=== PATIENT | female | born 1950 | race African-American/Black ===

== ENCOUNTER 2018-04-23 08:47 | Inpatient (IN) ==
[2018-04-23] MEDS ORDERED: SODIUM CHLORIDE 0.9% 1,000 ML IV STA ×2 (09:11→10:57)
[2018-04-23 10:17] LABS: Barbiturates Screen,Urine Negative (Negative); Benzodiazepines Screen,Urine Negative (Negative); Cannabinoid Screen,Urine Negative (Negative); Opiate Screen,Urine Positive (Negative); Phencyclidine Screen,Urine Negative (Negative)
[2018-04-23 10:21] LABS: Albumin 2.4 G/DL (3.4-5.0); Apearance,Urine Slightly Hazy (Clear); Bilirubin,Total 0.4 MG/DL (0.2-1.0); Bilirubin,Urine Negative (Negative); Blood, Urine Moderate mg/dL (Negative); Calcium 8.2 MG/DL (8.5-10.1); Glucose,Urine (UA) Negative (Negative); Ketones,Urine Negative (Negative); Mucus,Urine Few /LPF (Occasional); Nitrite,Urine Negative (Negative); Osmolality,Calculated 286.7 MOS/KG (273-304); Potassium 3.9 MMOL/L (3.5-5.1); Protein,Urine 30 MG/DL; RBC,Urine 22 /HPF (0-4); Squamous Epithelial Cell,Urine Occasional /HPF (0-10); Total Protein 6.6 G/DL (6.4-8.3); Urine Color Yellow (Yellow); Urine Urobilinogen < 2.0 EU/DL (0.2-1.0); WBC,Urine 252 /HPF (0-6)
[2018-04-23 10:43] LABS: Basophils % 0.2 % (0.0-0.8); Eosinophils % 0.1 % (0.00-10.9); Hematocrit 37.9 VOL% (35.7-47.0); Immature Granulocytes % 0.7 %; Immature Granulocytes Absolute 0.08 #; Lymphocytes # 1.3 10*3/uL (1.4-4.0); Lymphocytes % 10.7 % (21.3-54.2); Mean Corpuscular HGB Conc 29.3 GM/DL (32-36); Mean Corpuscular Hemoglobin 26 PG (27-34); Mean Corpuscular Volume 90.2 FL (87-102); Mean Platelet Volume 12.4 FL (9.6-12.0); Monocytes # 1.6 10*3/uL (0.11-0.8); Neutrophils # 9.2 10*3/uL (1.4-7.4); Neutrophils % 75.3 % (38.7-73.9); Platelet Count 258 T/CUMM (130-400); Red Cell Distribution Width 13.6 % (9.3-17.3); White Blood Count 12.3 T/CUMM (4-12)
[2018-04-23 10:46] LABS: Hemoglobin 11.1 GM/DL (12.0-16.0)
[2018-04-23] MEDS ORDERED: cefTRIAXone 2,000 MG in SODIUM CHLORIDE 0.9% 100 ML IV ONE (10:54)
[2018-04-23] MEDS ORDERED: cefTRIAXone 1,000 MG VIAL ONE (11:38)
[2018-04-23] MEDS ORDERED: HYDROmorphone 2 MG/1 ML VIAL IV STA (12:05)
[2018-04-23] MEDS ORDERED: ACETAMINOPHEN 325 MG TABLET PO PRN (12:39)
[2018-04-23] MEDS ORDERED: ONDANSETRON 4 MG/2 ML VIAL IV PRN (12:39)
[2018-04-23] MEDS ORDERED: DOCUSATE SODIUM 100 MG CAPSULE PO PRN (12:39)
[2018-04-23 13:19] LABS: Thyroid Stimulating Hormone 1.23 uIU/ml (0.358-3.74)
[2018-04-23] MEDS ORDERED: HYDROmorphone 2 MG TABLET PO PRN (13:34)
[2018-04-23] MEDS ORDERED: ALBUTEROL/IPRATROPIUM 3 ML NEB RESP TX PRN (13:34)
[2018-04-23] MEDS ORDERED: HydrOXYzine PAMOATE 25 MG CAPSULE PO PRN (13:34)
[2018-04-23] MEDS ORDERED: NITROGLYCERIN SL 0.4 MG TABLET SL PRN (13:34)
[2018-04-23] MEDS: SODIUM CHLORIDE 0.9% 1,000 ML IV SCH (13:51)
[2018-04-23] MEDS ORDERED: HYDROmorphone 2 MG/1 ML VIAL IV PRN (14:06)
[2018-04-23] MEDS: ALBUTEROL/IPRATROPIUM 3 ML NEB RESP TX SCH ×2 (14:30→19:25)
[2018-04-23] MEDS: TOPIRAMATE 25 MG TABLET PO SCH (20:34)
[2018-04-23] MEDS: TAMSULOSIN 0.4 MG CAPSULE PO SCH (20:34)
[2018-04-23] MEDS: oxyCODONE IR 5 MG TABLET PO PRN (20:34)
[2018-04-23] MEDS: ENOXAPARIN 40 MG/0.4 ML SYRINGE SUBCUT SCH (20:37)
[2018-04-24] MEDS: SODIUM CHLORIDE 0.9% 1,000 ML IV SCH ×2 (01:30→15:20)
[2018-04-24 04:43] LABS: Basophils % 0.5 % (0.0-0.8); Eosinophils # 0.2 10*3/uL (0.0-0.87); Eosinophils % 2.3 % (0.00-10.9); Hematocrit 31.6 VOL% (35.7-47.0); Hemoglobin 9.3 GM/DL (12.0-16.0); Immature Granulocytes % 0.5 %; Immature Granulocytes Absolute 0.04 #; Lymphocytes # 2.5 10*3/uL (1.4-4.0); Lymphocytes % 27.7 % (21.3-54.2); Mean Corpuscular HGB Conc 29.4 GM/DL (32-36); Mean Corpuscular Hemoglobin 26 PG (27-34); Mean Corpuscular Volume 89.5 FL (87-102); Mean Platelet Volume 11.7 FL (9.6-12.0); Monocytes % 11.6 % (1.7-12.7); Neutrophils # 5.1 10*3/uL (1.4-7.4); Neutrophils % 57.4 % (38.7-73.9); Platelet Count 239 T/CUMM (130-400); Red Blood Count 3.53 MC/CUMM (3.8-5.5); Red Cell Distribution Width 13.6 % (9.3-17.3); White Blood Count 8.9 T/CUMM (4-12)
[2018-04-24 05:12] LABS: Calcium 7.6 MG/DL (8.5-10.1); Osmolality,Calculated 288.4 MOS/KG (273-304); Potassium 3.4 MMOL/L (3.5-5.1); Risk Ratio 2.76; VLDL CHOLESTEROL 14.6 MG/DL
[2018-04-24 05:16] LABS: Eosinophils 3 % (0-10); Lymphocytes 28 % (20-55); Platelet Estimate Normal; Polychromasia Few; Segmented Neutrophils 64 % (50-85); Total Cells Counted 100
[2018-04-24] MEDS: LEVOTHYROXINE 100 MCG TABLET PO SCH (06:15)
[2018-04-24] MEDS: oxyCODONE IR 5 MG TABLET PO PRN ×2 (06:22→13:59)
[2018-04-24] MEDS: ALBUTEROL/IPRATROPIUM 3 ML NEB RESP TX SCH ×4 (06:47→19:08)
[2018-04-24] MEDS: cefTRIAXone 1,000 MG in SYRINGE 1 EACH IV SCH (09:08)
[2018-04-24] MEDS: ESCITALOPRAM 10 MG TABLET PO SCH (09:11)
[2018-04-24] MEDS: ISOSORBIDE MONONITRATE 30 MG TABLET PO SCH (09:11)
[2018-04-24] MEDS: ASPIRIN EC 81 MG TABLET PO SCH (09:11)
[2018-04-24] MEDS: PANTOPRAZOLE 40 MG TABLET PO SCH (09:11)
[2018-04-24] MEDS: predniSONE 5 MG TABLET PO SCH (09:11)
[2018-04-24] MEDS: TOPIRAMATE 25 MG TABLET PO SCH ×2 (09:11→21:44)
[2018-04-24] MEDS: OLOPATADINE 0.1% OPH SOLN 5 ML BOTTLE BOTH EYES SCH (09:12)
[2018-04-24] MEDS: amLODIPine 5 MG TABLET PO SCH (09:15)
[2018-04-24] MEDS: FLUCONAZOLE INJ 100 MG in IV BAG 1 EACH IV SCH (10:51)
[2018-04-24] MEDS: TAMSULOSIN 0.4 MG CAPSULE PO SCH (21:43)
[2018-04-24] MEDS: ENOXAPARIN 40 MG/0.4 ML SYRINGE SUBCUT SCH (21:44)
[2018-04-25] MEDS: oxyCODONE IR 5 MG TABLET PO PRN (02:21)
[2018-04-25] MEDS: SODIUM CHLORIDE 0.9% 1,000 ML IV SCH (03:15)
[2018-04-25 05:15] LABS: Calcium 8.1 MG/DL (8.5-10.1); Osmolality,Calculated 286.6 MOS/KG (273-304); Potassium 3.5 MMOL/L (3.5-5.1)
[2018-04-25 05:29] LABS: Basophils % 0.4 % (0.0-0.8); Eosinophils # 0.2 10*3/uL (0.0-0.87); Eosinophils % 2.1 % (0.00-10.9); Hematocrit 32.5 VOL% (35.7-47.0); Hemoglobin 9.7 GM/DL (12.0-16.0); Immature Granulocytes % 0.4 %; Immature Granulocytes Absolute 0.04 #; Lymphocytes # 2.1 10*3/uL (1.4-4.0); Lymphocytes % 20.1 % (21.3-54.2); Mean Corpuscular HGB Conc 29.8 GM/DL (32-36); Mean Corpuscular Hemoglobin 27 PG (27-34); Mean Corpuscular Volume 89.5 FL (87-102); Monocytes # 1.2 10*3/uL (0.11-0.8); Monocytes % 11.8 % (1.7-12.7); Neutrophils # 6.7 10*3/uL (1.4-7.4); Neutrophils % 65.2 % (38.7-73.9); Platelet Count 252 T/CUMM (130-400); Red Blood Count 3.63 MC/CUMM (3.8-5.5); Red Cell Distribution Width 13.6 % (9.3-17.3); White Blood Count 10.2 T/CUMM (4-12)
[2018-04-25 05:53] LABS: Hypochromasia 1+
[2018-04-25 05:54] LABS: Microcytosis 1+; Ovalocytes Slight; Platelet Estimate Normal
[2018-04-25] MEDS: LEVOTHYROXINE 100 MCG TABLET PO SCH (06:12)
[2018-04-25] MEDS: ALBUTEROL/IPRATROPIUM 3 ML NEB RESP TX SCH ×4 (06:50→18:52)
[2018-04-25] MEDS ORDERED: DIAZEPAM 5 MG TABLET PO ONE (07:52)
[2018-04-25] MEDS ORDERED: ALBUTEROL 2.5 MG/3 ML NEB RESP TX ONE (07:52)
[2018-04-25] MEDS ORDERED: PANTOPRAZOLE 40 MG TABLET PO ONE (07:52)
[2018-04-25] MEDS: LACTATED RINGERS 1,000 ML IV SCH ×2 (10:10→16:17)
[2018-04-25] MEDS ORDERED: PROPOFOL 200 MG/20 ML VIAL IV ONE (12:19)
[2018-04-25] MEDS ORDERED: fentaNYL 100 MCG/2 ML VIAL ONE (12:20)
[2018-04-25] MEDS ORDERED: SEVOFLURANE 1 UNIT/15 MINUTE INH ONE (12:20)
[2018-04-25] MEDS ORDERED: MIDAZOLAM 2 MG/2 ML VIAL ONE (12:21)
[2018-04-25] MEDS ORDERED: methylPREDNISolone SOD SUC 125 MG/2 ML VIAL ONE (12:21)
[2018-04-25] MEDS ORDERED: PHENYLEPHRINE 1 MG/10 ML SYRINGE IV ONE (12:21)
[2018-04-25] MEDS ORDERED: GLYCOPYRROLATE 0.4 MG/2 ML VIAL ONE (12:21)
[2018-04-25] MEDS ORDERED: ROCURONIUM 100 MG/10 ML VIAL IV ONE (12:21)
[2018-04-25] MEDS ORDERED: NEOSTIGMINE 10 MG/10 ML VIAL ONE (12:21)
[2018-04-25] MEDS ORDERED: ONDANSETRON 4 MG/2 ML VIAL ONE (12:21)
[2018-04-25] MEDS ORDERED: MEPERIDINE 25 MG/1 ML VIAL IV PRN (12:43)
[2018-04-25] MEDS ORDERED: ALBUTEROL/IPRATROPIUM 3 ML NEB RESP TX ONE (12:44)
[2018-04-25] MEDS: PANTOPRAZOLE 40 MG TABLET PO SCH (12:57)
[2018-04-25] MEDS: predniSONE 5 MG TABLET PO SCH (14:18)
[2018-04-25] MEDS: amLODIPine 5 MG TABLET PO SCH (14:18)
[2018-04-25] MEDS: ESCITALOPRAM 10 MG TABLET PO SCH (14:19)
[2018-04-25] MEDS: ASPIRIN EC 81 MG TABLET PO SCH (14:19)
[2018-04-25] MEDS: TOPIRAMATE 25 MG TABLET PO SCH ×2 (14:19→21:06)
[2018-04-25] MEDS: ISOSORBIDE MONONITRATE 30 MG TABLET PO SCH (14:19)
[2018-04-25] MEDS: cefTRIAXone 1,000 MG in SYRINGE 1 EACH IV SCH (14:20)
[2018-04-25] MEDS: OLOPATADINE 0.1% OPH SOLN 5 ML BOTTLE BOTH EYES SCH (14:22)
[2018-04-25] MEDS: FLUCONAZOLE INJ 100 MG in IV BAG 1 EACH IV SCH (14:22)
[2018-04-25] MEDS: TAMSULOSIN 0.4 MG CAPSULE PO SCH (21:06)
[2018-04-25] MEDS: ENOXAPARIN 40 MG/0.4 ML SYRINGE SUBCUT SCH (21:07)
[2018-04-26] MEDS: oxyCODONE IR 5 MG TABLET PO PRN (00:13)
[2018-04-26 06:31] LABS: Basophils % 0.1 % (0.0-0.8); Hematocrit 32.5 VOL% (35.7-47.0); Hemoglobin 9.5 GM/DL (12.0-16.0); Immature Granulocytes % 0.7 %; Immature Granulocytes Absolute 0.06 #; Lymphocytes # 0.8 10*3/uL (1.4-4.0); Lymphocytes % 9.9 % (21.3-54.2); Mean Corpuscular HGB Conc 29.2 GM/DL (32-36); Mean Corpuscular Hemoglobin 26 PG (27-34); Mean Platelet Volume 12.1 FL (9.6-12.0); Monocytes # 0.3 10*3/uL (0.11-0.8); Monocytes % 4.2 % (1.7-12.7); Neutrophils # 6.9 10*3/uL (1.4-7.4); Neutrophils % 85.1 % (38.7-73.9); Platelet Count 297 T/CUMM (130-400); Red Blood Count 3.61 MC/CUMM (3.8-5.5); Red Cell Distribution Width 13.8 % (9.3-17.3); White Blood Count 8.1 T/CUMM (4-12)
[2018-04-26 06:37] LABS: Calcium 8.2 MG/DL (8.5-10.1); Osmolality,Calculated 288.4 MOS/KG (273-304); Potassium 3.9 MMOL/L (3.5-5.1)
[2018-04-26] MEDS: SODIUM CHLORIDE 0.9% 1,000 ML IV SCH ×2 (06:46→06:47)
[2018-04-26] MEDS: ALBUTEROL/IPRATROPIUM 3 ML NEB RESP TX SCH (07:00)
[2018-04-26] MEDS: LEVOTHYROXINE 100 MCG TABLET PO SCH (07:20)
[2018-04-26 07:37] VITALS: BP 107/92
[2018-04-26] MEDS: cefTRIAXone 1,000 MG in SYRINGE 1 EACH IV SCH (08:42)
[2018-04-26] MEDS: FLUCONAZOLE INJ 100 MG in IV BAG 1 EACH IV SCH (08:42)
[2018-04-26] MEDS: amLODIPine 5 MG TABLET PO SCH (08:43)
[2018-04-26] MEDS: ISOSORBIDE MONONITRATE 30 MG TABLET PO SCH (08:43)
[2018-04-26] MEDS: ASPIRIN EC 81 MG TABLET PO SCH (08:44)
[2018-04-26] MEDS: ESCITALOPRAM 10 MG TABLET PO SCH (08:44)
[2018-04-26] MEDS: PANTOPRAZOLE 40 MG TABLET PO SCH (08:44)
[2018-04-26] MEDS: TOPIRAMATE 25 MG TABLET PO SCH (08:44)
[2018-04-26] MEDS: predniSONE 5 MG TABLET PO SCH (08:44)
[2018-04-26] MEDS ORDERED: FLUCONAZOLE 100 MG TABLET PO SCH (09:00)
[2018-04-26] MEDS: OLOPATADINE 0.1% OPH SOLN 5 ML BOTTLE BOTH EYES SCH (09:08)
[2018-04-26] MEDS ORDERED: AMOXICILLIN 875 MG TABLET PO SCH (21:00)
== END 2018-04-26 11:25 | disposition home or self-care (01) | DRG 661 ==
LOC: EDUNIT# → EDBD → N.ED 08:47 → SUATTDRO 11:46 → N.EDINP 11:46 → N.2E 12:43
PROVIDERS: ADMIT Internal Medicine; ATTEND Internal Medicine Infectious Disease

== ENCOUNTER 2020-03-11 16:39 | Observation (INO) ==
[2020-03-11] MEDS ORDERED: SODIUM CHLORIDE 0.9% 1,000 ML IV STA (17:15)
[2020-03-11] MEDS ORDERED: ONDANSETRON 4 MG/2 ML VIAL IV STA (17:15)
[2020-03-11 18:09] LABS: Bilirubin,Urine Negative (Negative); Blood, Urine Moderate mg/dL (Negative); Glucose,Urine (UA) Negative (Negative); Ketones,Urine 5 mg/dL (Negative); Mucus,Urine Occasional /LPF (Occasional); Nitrite,Urine Negative (Negative); Protein,Urine 30 MG/DL; RBC,Urine 6 /HPF (0-4); Squamous Epithelial Cell,Urine Occasional /HPF (0-10); Urine Appearance CLEAR (Clear); Urine Color Yellow (Yellow); Urine Specific Gravity 1.015 (1.001-1.035); Urine Urobilinogen < 2.0 EU/DL (0.2-1.0); WBC,Urine 108 /HPF (0-6)
[2020-03-11] MEDS ORDERED: KETOROLAC 30 MG/1 ML VIAL IV STA (18:58)
[2020-03-11] MEDS ORDERED: cefTRIAXone 1,000 MG in SODIUM CHLORIDE 0.9% 100 ML IV STA (18:58)
[2020-03-11 19:16] LABS: Basophils % 0.5 % (0.0-0.8); Red Cell Distribution Width 13.6 % (9.3-17.3)
[2020-03-11 19:44] LABS: Hematocrit 43.1 VOL% (35.7-47.0); Hemoglobin 13.1 GM/DL (12.0-16.0); Immature Granulocytes % 0.3 %; Immature Granulocytes Absolute 0.02 #; Lymphocytes # 1.1 10*3/uL (1.4-4.0); Lymphocytes % 17.7 % (21.3-54.2); Mean Corpuscular HGB Conc 30.4 GM/DL (32-36); Mean Corpuscular Volume 85.9 FL (87-102); Mean Platelet Volume 13.2 FL (9.6-12.0); Monocytes % 12.3 % (1.7-12.7); Neutrophils % 69.2 % (38.7-73.9); Platelet Count 153 T/CUMM (130-400); Red Blood Count 5.02 MC/CUMM (3.8-5.5)
[2020-03-11 21:18] LABS: Alanine Aminotransferase 25 U/L (13-56); Albumin 2.5 G/DL (3.4-5.0); Alkaline Phosphatase 79 U/L (45-117); Aspartate Amino Transferase 166 U/L (0-37); Bilirubin,Total < 0.39 MG/DL (0.2-1.0); Blood Urea Nitrogen 11 MG/DL (7-18); CKMB % 0.7 %; Calcium 8.3 MG/DL (8.5-10.1); Estimated Glom Filtration Rate 116 ML/MIN; Glucose 84 MG/DL (74-106); Osmolality,Calculated 283.8 MOS/KG (273-304); Total Protein 5.8 G/DL (6.4-8.3); Troponin I 0.122 NG/ML (0.00-0.045)
[2020-03-11] MEDS ORDERED: ENOXAPARIN 100 MG/ML SYRINGE SUBCUT STA (21:42)
[2020-03-11] MEDS ORDERED: ASPIRIN 325 MG TABLET PO STA (21:42)
[2020-03-11] MEDS ORDERED: DEXTROSE 50% 25 GM/50 ML VIAL IV PRN (22:57)
[2020-03-11] MEDS ORDERED: GLUCAGON 1 MG VIAL IM PRN (22:57)
[2020-03-12] MEDS: SODIUM CHLORIDE 0.9% 1,000 ML IV SCH ×3 (00:42→16:30)
[2020-03-12] MEDS: ACETAMINOPHEN 325 MG TABLET PO PRN ×3 (00:45→21:56)
[2020-03-12 01:32] LABS: CKMB % 0.6 %
[2020-03-12 01:34] LABS: Troponin I 0.11 NG/ML (0.00-0.045)
[2020-03-12] MEDS ORDERED: oxyCODONE/ACETAMINOPHEN 5-325 MG TABLET ONE (04:40)
[2020-03-12] MEDS: oxyCODONE ER 10 MG TABLET PO PRN ×2 (04:47→16:25)
[2020-03-12 07:27] LABS: Basophils % 0.9 % (0.0-0.8); Eosinophils # 0.1 10*3/uL (0.0-0.87); Eosinophils % 1.7 % (0.00-10.9); Hematocrit 39.5 VOL% (35.7-47.0); Immature Granulocytes % 0.2 %; Immature Granulocytes Absolute 0.01 #; Lymphocytes # 1.7 10*3/uL (1.4-4.0); Lymphocytes % 36.7 % (21.3-54.2); Mean Corpuscular HGB Conc 30.4 GM/DL (32-36); Mean Corpuscular Volume 86.4 FL (87-102); Mean Platelet Volume 12.2 FL (9.6-12.0); Monocytes % 16.7 % (1.7-12.7); Neutrophils % 43.8 % (38.7-73.9); Platelet Count 181 T/CUMM (130-400); Red Blood Count 4.57 MC/CUMM (3.8-5.5); Red Cell Distribution Width 13.8 % (9.3-17.3); White Blood Count 4.6 T/CUMM (4-12)
[2020-03-12 07:47] LABS: Atypical Lymphocytes Few; Eosinophils 2 % (0-10); Hypochromasia 1+; Lymphocytes 33 % (20-55); Ovalocytes Slight; Platelet Estimate Adequate; Segmented Neutrophils 50 % (50-85); Total Cells Counted 100
[2020-03-12] MEDS ORDERED: POTASSIUM CHLORIDE 20 MEQ TABLET PO ONE (08:49)
[2020-03-12] MEDS: ENOXAPARIN 80 MG/0.8 ML SYRINGE SUBCUT SCH ×2 (09:10→21:48)
[2020-03-12 10:14] LABS: Albumin 2.4 G/DL (3.4-5.0); Bilirubin,Total 0.4 MG/DL (0.2-1.0); CKMB % 0.5 %; Calcium 8.4 MG/DL (8.5-10.1); Osmolality,Calculated 283.7 MOS/KG (273-304); Total Protein 5.8 G/DL (6.4-8.3)
[2020-03-12 10:16] LABS: Troponin I 0.097 NG/ML (0.00-0.045)
[2020-03-12] MEDS ORDERED: NITROGLYCERIN SL 0.4 MG TABLET SL ONE (19:04)
[2020-03-12] MEDS: ONDANSETRON 4 MG/2 ML VIAL IV PRN (19:06)
[2020-03-12] MEDS ORDERED: NITROGLYCERIN SL 0.4 MG TABLET SL PRN (19:23)
[2020-03-12] MEDS ORDERED: KETOROLAC 15 MG/1 ML VIAL IV ONE (19:32)
[2020-03-12] MEDS: cefTRIAXone 1,000 MG in SYRINGE 1 EACH IV SCH (21:49)
[2020-03-13] MEDS: oxyCODONE ER 10 MG TABLET PO PRN ×2 (04:15→17:38)
[2020-03-13] MEDS: SODIUM CHLORIDE 0.9% 1,000 ML IV SCH ×3 (07:17→18:48)
[2020-03-13 07:29] LABS: Calcium 8.5 MG/DL (8.5-10.1); Osmolality,Calculated 284.6 MOS/KG (273-304)
[2020-03-13] MEDS: ENOXAPARIN 80 MG/0.8 ML SYRINGE SUBCUT SCH ×2 (09:52→20:24)
[2020-03-13] MEDS: ONDANSETRON 4 MG/2 ML VIAL IV PRN ×2 (09:52→15:25)
[2020-03-13] MEDS: LEVOTHYROXINE 100 MCG TABLET PO SCH (09:52)
[2020-03-13] MEDS: MECLIZINE 12.5 MG TABLET PO SCH ×3 (09:52→20:24)
[2020-03-13] MEDS: ACETAMINOPHEN 325 MG TABLET PO PRN (20:24)
[2020-03-13] MEDS: POTASSIUM CHLORIDE 20 MEQ TABLET PO PRN ×2 (20:24→22:55)
[2020-03-13] MEDS: cefTRIAXone 1,000 MG in SYRINGE 1 EACH IV SCH (20:24)
[2020-03-14] MEDS: POTASSIUM CHLORIDE 20 MEQ TABLET PO PRN ×2 (00:35→02:30)
[2020-03-14] MEDS: ACETAMINOPHEN 325 MG TABLET PO PRN (04:11)
[2020-03-14] MEDS: oxyCODONE ER 10 MG TABLET PO PRN (04:11)
[2020-03-14] MEDS: LEVOTHYROXINE 100 MCG TABLET PO SCH (05:30)
[2020-03-14 06:14] LABS: Calcium 8.4 MG/DL (8.5-10.1)
[2020-03-14] MEDS ORDERED: carvediloL 3.125 MG TABLET PO SCH (09:00)
[2020-03-14] MEDS ORDERED: amLODIPine 5 MG TABLET PO SCH (09:00)
[2020-03-14] MEDS: ONDANSETRON 4 MG/2 ML VIAL IV PRN (09:22)
[2020-03-14] MEDS: MECLIZINE 12.5 MG TABLET PO SCH (09:25)
[2020-03-14 12:38] VITALS: BP 128/73
== END 2020-03-14 17:00 | disposition home or self-care (01) ==
LOC: EDUNIT# → N.ED 16:39 → N.EDINP 16:39 → SUATTDRO 22:57 → N.EDINP 03-12 13:53 → N.TELES 03-12 14:30
PROVIDERS: ADMIT Family Medicine; ATTEND Hospitalist

== ENCOUNTER 2021-10-20 13:32 | Inpatient (IN) ==
[2021-10-20 14:50] LABS: Basophils % 0.6 % (0.0-0.8); Eosinophils # 0.1 10*3/uL (0.0-0.87); Hematocrit 42.2 VOL% (35.7-47.0); Hemoglobin 12.5 GM/DL (12.0-16.0); Immature Granulocytes % 0.4 %; Immature Granulocytes Absolute 0.02 #; Lymphocytes # 1.5 10*3/uL (1.4-4.0); Lymphocytes % 30.5 % (21.3-54.2); Mean Corpuscular HGB Conc 29.6 GM/DL (32-36); Mean Corpuscular Volume 85.8 FL (87-102); Mean Platelet Volume 12.9 FL (9.6-12.0); Monocytes # 0.5 10*3/uL (0.11-0.8); Monocytes % 10.7 % (1.7-12.7); Neutrophils % 56.8 % (38.7-73.9); Platelet Count 186 T/CUMM (130-400); Red Blood Count 4.92 MC/CUMM (3.8-5.5); Red Cell Distribution Width 13.7 % (9.3-17.3)
[2021-10-20 14:53] LABS: Alanine Aminotransferase 20 U/L (13-56); Albumin 3.4 G/DL (3.4-5.0); Alkaline Phosphatase 102 U/L (45-117); Aspartate Amino Transferase 16 U/L (0-37); Bilirubin,Total < 0.39 MG/DL (0.20-1.00); Blood Urea Nitrogen 18 MG/DL (7-18); Calcium 8.8 MG/DL (8.5-10.1); Carbon Dioxide 29 MMOL/L (21-32); Chloride 109 MMOL/L (98-107); Estimated Glom Filtration Rate 77 ML/MIN; Glucose 81 MG/DL (74-106); Osmolality,Calculated 283.1 MOS/KG (273-304); Sodium 142 MMOL/L (136-145); Total Protein 6.7 G/DL (6.4-8.2)
[2021-10-20] MEDS ORDERED: ASPIRIN EC 81 MG TABLET PO STA (18:32)
[2021-10-20] MEDS ORDERED: SODIUM CHLORIDE 0.9% 500 ML IV STA (18:32)
[2021-10-20] MEDS ORDERED: KETOROLAC 30 MG/1 ML VIAL IV STA (18:32)
[2021-10-20 19:00] LABS: Hyaline Casts,Urine 11 /LPF (0-3); Mucus,Urine Few /LPF (Occasional); RBC,Urine 520 /HPF (0-4)
[2021-10-20 19:02] LABS: Bilirubin,Urine Negative (Negative); Blood, Urine Large mg/dL (Negative); Glucose,Urine (UA) Negative (Negative); Ketones,Urine Negative (Negative); Nitrite,Urine Negative (Negative); Protein,Urine 30 mg/dL (Negative); Urine Appearance Clear (Clear); Urine Color Yellow (Yellow); Urine Specific Gravity >= 1.030 (1.001-1.035); Urine Urobilinogen 0.2 eU/dL (<2.0); Urine pH 5.5 (4.5-8.0)
[2021-10-20] MEDS ORDERED: MEROPENEM 1,000 MG in SODIUM CHLORIDE 0.9% 100 ML IV ONE (19:36)
[2021-10-20] MEDS ORDERED: MEROPENEM 500 MG in SODIUM CHLORIDE 0.9% 100 ML IV ONE (20:00)
[2021-10-20] MEDS ORDERED: GLUCAGON 1 MG VIAL IM PRN (20:52)
[2021-10-20] MEDS ORDERED: hydrALAZINE 20 MG/1 ML VIAL IV PRN (20:59)
[2021-10-20] MEDS ORDERED: ONDANSETRON 4 MG/2 ML VIAL IV PRN (20:59)
[2021-10-20] MEDS ORDERED: ALUMINUM/MAGNES/SIMETH MAX STR 30 ML UDCUP PO PRN (20:59)
[2021-10-20] MEDS ORDERED: DEXTROSE 10% 250 ML BAG IV PRN (21:21)
[2021-10-20] MEDS ORDERED: ALBUTEROL 2.5 MG/3 ML NEB RESP TX ONE (22:58)
[2021-10-20] MEDS: ALBUTEROL 2.5 MG/3 ML NEB RESP TX SCH (23:09)
[2021-10-20] MEDS: DOCUSATE SODIUM 100 MG CAPSULE PO SCH (23:33)
[2021-10-20] MEDS: MEROPENEM 1,000 MG in SODIUM CHLORIDE 0.9% 100 ML IV SCH (23:41)
[2021-10-21] MEDS ORDERED: NITROGLYCERIN SL 0.4 MG TABLET SL PRN (01:53)
[2021-10-21 02:04] LABS: Basophils % 0.3 % (0.0-0.8); Calcium 8.9 MG/DL (8.5-10.1); Eosinophils # 0.1 10*3/uL (0.0-0.87); Eosinophils % 1.2 % (0.00-10.9); Hematocrit 40.5 VOL% (35.7-47.0); Hemoglobin 12.2 GM/DL (12.0-16.0); Immature Granulocytes % 0.4 %; Immature Granulocytes Absolute 0.03 #; Lymphocytes # 2.9 10*3/uL (1.4-4.0); Mean Corpuscular HGB Conc 30.1 GM/DL (32-36); Mean Corpuscular Volume 84.6 FL (87-102); Mean Platelet Volume 13.3 FL (9.6-12.0); Monocytes # 0.9 10*3/uL (0.11-0.8); Neutrophils % 42.1 % (38.7-73.9); Osmolality,Calculated 282.1 MOS/KG (273-304); Platelet Count 166 T/CUMM (130-400); Potassium 3.7 MMOL/L (3.5-5.1); Red Blood Count 4.79 MC/CUMM (3.8-5.5); Red Cell Distribution Width 13.6 % (9.3-17.3); Risk Ratio 1.6; VLDL Cholesterol 12.2 MG/DL; White Blood Count 6.7 T/CUMM (4-12)
[2021-10-21] MEDS ORDERED: tiZANidine 4 MG TABLET PO PRN (03:23)
[2021-10-21] MEDS: oxyCODONE ER 10 MG TABLET PO SCH ×3 (04:04→20:47)
[2021-10-21] MEDS: MEROPENEM 1,000 MG in SODIUM CHLORIDE 0.9% 100 ML IV SCH ×4 (05:46→21:01)
[2021-10-21] MEDS ORDERED: MEROPENEM IV SCH (06:00)
[2021-10-21] MEDS ORDERED: MEROPENEM 1,000 MG in SODIUM CHLORIDE 0.9% 100 ML IV SCH (06:00)
[2021-10-21] MEDS ORDERED: SODIUM CHLORIDE 0.9% IV SCH (06:00)
[2021-10-21] MEDS ORDERED: PANTOPRAZOLE 40 MG TABLET PO SCH (06:00)
[2021-10-21] MEDS: LEVOTHYROXINE 100 MCG TABLET PO SCH (06:20)
[2021-10-21] MEDS: FUROSEMIDE 20 MG TABLET PO SCH (09:12)
[2021-10-21] MEDS: LEFLUNOMIDE 10 MG TABLET PO SCH (09:13)
[2021-10-21] MEDS: DOCUSATE SODIUM 100 MG CAPSULE PO SCH ×2 (09:13→20:48)
[2021-10-21] MEDS: ROSUVASTATIN 10 MG TABLET PO SCH (09:13)
[2021-10-21] MEDS: predniSONE 5 MG TABLET PO SCH (09:13)
[2021-10-21] MEDS: GABAPENTIN 300 MG CAPSULE PO SCH ×3 (09:13→20:48)
[2021-10-21] MEDS: LIOTHYRONINE 25 MCG TABLET PO SCH (09:13)
[2021-10-21] MEDS: amLODIPine 5 MG TABLET PO SCH (09:13)
[2021-10-21] MEDS: CLOPIDOGREL 75 MG TABLET PO SCH (09:13)
[2021-10-21] MEDS: PANTOPRAZOLE 40 MG TABLET PO SCH ×2 (09:13→20:48)
[2021-10-21] MEDS: carvediloL 3.125 MG TABLET PO SCH ×2 (09:14→17:34)
[2021-10-21] MEDS: MELOXICAM 7.5 MG TABLET PO SCH (09:17)
[2021-10-21] MEDS: ESCITALOPRAM 10 MG TABLET PO SCH (09:17)
[2021-10-21] MEDS: TOPIRAMATE 25 MG TABLET PO SCH ×2 (09:18→20:48)
[2021-10-21] MEDS: NALOXEGOL 25 MG PO SCH (09:42)
[2021-10-21] MEDS: TOFACITINIB 11 MG PO SCH (09:43)
[2021-10-21] MEDS: ASPIRIN EC 81 MG TABLET PO SCH (12:39)
[2021-10-21] MEDS: ALBUTEROL 2.5 MG/3 ML NEB RESP TX SCH ×3 (13:18→19:33)
[2021-10-21] MEDS: traZODone 50 MG TABLET PO SCH (20:48)
[2021-10-22] MEDS: ALBUTEROL 2.5 MG/3 ML NEB RESP TX SCH ×4 (01:06→19:19)
[2021-10-22] MEDS: oxyCODONE ER 10 MG TABLET PO SCH ×3 (04:15→20:14)
[2021-10-22] MEDS: MEROPENEM 1,000 MG in SODIUM CHLORIDE 0.9% 100 ML IV SCH ×3 (05:34→21:29)
[2021-10-22] MEDS: LEVOTHYROXINE 100 MCG TABLET PO SCH (05:34)
[2021-10-22 06:50] LABS: Basophils % 0.6 % (0.0-0.8); Eosinophils # 0.1 10*3/uL (0.0-0.87); Eosinophils % 2.4 % (0.00-10.9); Hematocrit 38.1 VOL% (35.7-47.0); Hemoglobin 11.4 GM/DL (12.0-16.0); Immature Granulocytes % 0.4 %; Immature Granulocytes Absolute 0.02 #; Lymphocytes # 2.2 10*3/uL (1.4-4.0); Lymphocytes % 43.3 % (21.3-54.2); Mean Corpuscular HGB Conc 29.9 GM/DL (32-36); Mean Corpuscular Volume 86.4 FL (87-102); Monocytes # 0.8 10*3/uL (0.11-0.8); Monocytes % 16.1 % (1.7-12.7); Neutrophils % 37.2 % (38.7-73.9); Platelet Count 138 T/CUMM (130-400); Red Blood Count 4.41 MC/CUMM (3.8-5.5); Red Cell Distribution Width 13.8 % (9.3-17.3); White Blood Count 5.1 T/CUMM (4-12)
[2021-10-22 07:13] LABS: Calcium 8.1 MG/DL (8.5-10.1); Osmolality,Calculated 283.1 MOS/KG (273-304); Potassium 3.7 MMOL/L (3.5-5.1)
[2021-10-22 07:39] LABS: Anisocytosis 1+; Band Neutrophils 4 % (0-10); Eosinophils 2 % (0-10); Lymphocytes 43 % (20-55); Macrocytosis Slight; Ovalocytes Few; Platelet Estimate Adequate; Smudge Cells Few; Total Cells Counted 100
[2021-10-22 07:40] LABS: Tear Drop Cells Few
[2021-10-22] MEDS: ASPIRIN EC 81 MG TABLET PO SCH (09:48)
[2021-10-22] MEDS: ROSUVASTATIN 10 MG TABLET PO SCH (09:48)
[2021-10-22] MEDS: FUROSEMIDE 20 MG TABLET PO SCH (09:48)
[2021-10-22] MEDS: LEFLUNOMIDE 10 MG TABLET PO SCH (09:48)
[2021-10-22] MEDS: carvediloL 3.125 MG TABLET PO SCH ×2 (09:48→16:07)
[2021-10-22] MEDS: LIOTHYRONINE 25 MCG TABLET PO SCH (09:48)
[2021-10-22] MEDS: DOCUSATE SODIUM 100 MG CAPSULE PO SCH ×2 (09:48→20:14)
[2021-10-22] MEDS: MELOXICAM 7.5 MG TABLET PO SCH (09:49)
[2021-10-22] MEDS: PANTOPRAZOLE 40 MG TABLET PO SCH ×2 (09:49→20:14)
[2021-10-22] MEDS: predniSONE 5 MG TABLET PO SCH (09:49)
[2021-10-22] MEDS: ESCITALOPRAM 10 MG TABLET PO SCH (09:49)
[2021-10-22] MEDS: GABAPENTIN 300 MG CAPSULE PO SCH ×3 (09:49→20:14)
[2021-10-22] MEDS: amLODIPine 5 MG TABLET PO SCH (09:49)
[2021-10-22] MEDS: NALOXEGOL 25 MG PO SCH (09:49)
[2021-10-22] MEDS: CLOPIDOGREL 75 MG TABLET PO SCH (09:49)
[2021-10-22] MEDS: TOFACITINIB 11 MG PO SCH (09:49)
[2021-10-22] MEDS: TOPIRAMATE 25 MG TABLET PO SCH ×2 (09:50→20:15)
[2021-10-22] MEDS: traZODone 50 MG TABLET PO SCH (20:14)
[2021-10-23] MEDS: ALBUTEROL 2.5 MG/3 ML NEB RESP TX SCH ×4 (00:57→19:00)
[2021-10-23] MEDS: MEROPENEM 1,000 MG in SODIUM CHLORIDE 0.9% 100 ML IV SCH ×3 (05:23→21:23)
[2021-10-23] MEDS: LEVOTHYROXINE 100 MCG TABLET PO SCH (05:23)
[2021-10-23] MEDS: oxyCODONE ER 10 MG TABLET PO SCH ×3 (05:23→20:54)
[2021-10-23] MEDS: ROSUVASTATIN 10 MG TABLET PO SCH (09:52)
[2021-10-23] MEDS: TOPIRAMATE 25 MG TABLET PO SCH ×2 (09:52→20:54)
[2021-10-23] MEDS: ASPIRIN EC 81 MG TABLET PO SCH (09:52)
[2021-10-23] MEDS: FUROSEMIDE 20 MG TABLET PO SCH (09:53)
[2021-10-23] MEDS: carvediloL 3.125 MG TABLET PO SCH ×2 (09:53→16:47)
[2021-10-23] MEDS: amLODIPine 5 MG TABLET PO SCH (09:53)
[2021-10-23] MEDS: PANTOPRAZOLE 40 MG TABLET PO SCH ×2 (09:53→20:54)
[2021-10-23] MEDS: predniSONE 5 MG TABLET PO SCH (09:54)
[2021-10-23] MEDS: LIOTHYRONINE 25 MCG TABLET PO SCH (09:54)
[2021-10-23] MEDS: CLOPIDOGREL 75 MG TABLET PO SCH (09:54)
[2021-10-23] MEDS: GABAPENTIN 300 MG CAPSULE PO SCH ×3 (09:54→20:54)
[2021-10-23] MEDS: DOCUSATE SODIUM 100 MG CAPSULE PO SCH ×2 (09:54→20:54)
[2021-10-23] MEDS: MELOXICAM 7.5 MG TABLET PO SCH (09:57)
[2021-10-23] MEDS: LEFLUNOMIDE 10 MG TABLET PO SCH (09:58)
[2021-10-23] MEDS: ESCITALOPRAM 10 MG TABLET PO SCH (09:58)
[2021-10-23] MEDS: TOFACITINIB 11 MG PO SCH (13:02)
[2021-10-23] MEDS: NALOXEGOL 25 MG PO SCH (13:02)
[2021-10-23 14:54] LABS: Free T4 (Free Thyroxine) 0.94 NG/DL (0.76-1.46)
[2021-10-23] MEDS: traZODone 50 MG TABLET PO SCH (20:54)
[2021-10-24] MEDS: ALBUTEROL 2.5 MG/3 ML NEB RESP TX SCH ×3 (00:55→15:44)
[2021-10-24] MEDS: oxyCODONE ER 10 MG TABLET PO SCH ×2 (04:14→14:20)
[2021-10-24] MEDS: MEROPENEM 1,000 MG in SODIUM CHLORIDE 0.9% 100 ML IV SCH (05:03)
[2021-10-24 05:37] LABS: Basophils % 0.5 % (0.0-0.8); Eosinophils # 0.2 10*3/uL (0.0-0.87); Eosinophils % 3.8 % (0.00-10.9); Hematocrit 38.5 VOL% (35.7-47.0); Hemoglobin 11.6 GM/DL (12.0-16.0); Immature Granulocytes % 0.2 %; Immature Granulocytes Absolute 0.01 #; Lymphocytes # 2.3 10*3/uL (1.4-4.0); Lymphocytes % 41.6 % (21.3-54.2); Mean Corpuscular HGB Conc 30.1 GM/DL (32-36); Mean Platelet Volume 13.9 FL (9.6-12.0); Monocytes # 0.8 10*3/uL (0.11-0.8); Monocytes % 13.4 % (1.7-12.7); Neutrophils % 40.5 % (38.7-73.9); Platelet Count 141 T/CUMM (130-400); Red Blood Count 4.53 MC/CUMM (3.8-5.5); Red Cell Distribution Width 13.5 % (9.3-17.3); White Blood Count 5.6 T/CUMM (4-12)
[2021-10-24 05:39] LABS: Hypochromia 1+
[2021-10-24 05:40] LABS: Microcytosis 1+; Ovalocytes Few; Platelet Estimate Adequate
[2021-10-24] MEDS ORDERED: LEVOTHYROXINE 50 MCG TABLET PO SCH (06:00)
[2021-10-24 07:54] LABS: Albumin 2.9 G/DL (3.4-5.0); Bilirubin,Total 0.4 MG/DL (0.20-1.00); Calcium 8.8 MG/DL (8.5-10.1); Potassium 3.6 MMOL/L (3.5-5.1); Total Protein 6.5 G/DL (6.4-8.2)
[2021-10-24] MEDS: LIOTHYRONINE 25 MCG TABLET PO SCH (09:17)
[2021-10-24] MEDS: ASPIRIN EC 81 MG TABLET PO SCH (09:17)
[2021-10-24] MEDS: TOPIRAMATE 25 MG TABLET PO SCH (09:17)
[2021-10-24] MEDS: CLOPIDOGREL 75 MG TABLET PO SCH (09:17)
[2021-10-24] MEDS: MELOXICAM 7.5 MG TABLET PO SCH (09:17)
[2021-10-24] MEDS: LEFLUNOMIDE 10 MG TABLET PO SCH (09:17)
[2021-10-24] MEDS: GABAPENTIN 300 MG CAPSULE PO SCH ×2 (09:18→14:20)
[2021-10-24] MEDS: predniSONE 5 MG TABLET PO SCH (09:18)
[2021-10-24] MEDS: amLODIPine 5 MG TABLET PO SCH (09:18)
[2021-10-24] MEDS: FUROSEMIDE 20 MG TABLET PO SCH (09:18)
[2021-10-24] MEDS: ESCITALOPRAM 10 MG TABLET PO SCH (09:18)
[2021-10-24] MEDS: carvediloL 3.125 MG TABLET PO SCH (09:18)
[2021-10-24] MEDS: PANTOPRAZOLE 40 MG TABLET PO SCH (09:18)
[2021-10-24] MEDS: TOFACITINIB 11 MG PO SCH (09:19)
[2021-10-24] MEDS: ROSUVASTATIN 10 MG TABLET PO SCH (09:21)
[2021-10-24] MEDS: NALOXEGOL 25 MG PO SCH (10:37)
[2021-10-24] MEDS: DOCUSATE SODIUM 100 MG CAPSULE PO SCH (10:37)
[2021-10-24 12:24] VITALS: BP 122/60
[2021-10-24] MEDS ORDERED: CEFEPIME 1,000 MG in SODIUM CHLORIDE 0.9% 100 ML IV SCH (13:30)
== END 2021-10-24 15:33 | disposition home or self-care (01) | DRG 690 ==
LOC: N.ED 13:32 → N.EDINP 13:32 → SUATTDRO 20:52 → INTOOBSV 20:52 → OBSVTOIN 20:52 → N.3E 10-21 00:44 → UNDODISOB 10-24 15:33
PROVIDERS: ADMIT Internal Medicine; ATTEND Internal Medicine

== ENCOUNTER 2022-02-05 16:17 | Inpatient (IN) ==
[2022-02-05] MEDS ORDERED: ONDANSETRON 4 MG/2 ML VIAL IV ONE (16:40)
[2022-02-05] MEDS ORDERED: SODIUM CHLORIDE 0.9% 1,000 ML IV STA (16:40)
[2022-02-05] MEDS ORDERED: HYDROmorphone 1 MG/1 ML SYRINGE IV STA (16:41)
[2022-02-05] MEDS ORDERED: DILTIAZEM 25 MG/5 ML VIAL IV STA ×2 (16:47→18:17)
[2022-02-05 17:15] LABS: Basophils % 0.2 % (0.0-0.8); Hemoglobin 11.6 GM/DL (12.0-16.0); Immature Granulocytes % 0.3 %; Immature Granulocytes Absolute 0.04 #; Lymphocytes # 0.6 10*3/uL (1.4-4.0); Lymphocytes % 5.1 % (21.3-54.2); Mean Corpuscular HGB Conc 30.5 GM/DL (32-36); Mean Corpuscular Volume 85.8 FL (87-102); Mean Platelet Volume 13.6 FL (9.6-12.0); Monocytes # 1.5 10*3/uL (0.11-0.8); Monocytes % 12.3 % (1.7-12.7); Neutrophils % 82.1 % (38.7-73.9); Platelet Count 130 T/CUMM (130-400); Red Blood Count 4.43 MC/CUMM (3.8-5.5); Red Cell Distribution Width 13.9 % (9.3-17.3); White Blood Count 12.2 T/CUMM (4-12)
[2022-02-05 17:34] LABS: PT Patient Result 10.9 SECS (10.1-12.1)
[2022-02-05 17:47] LABS: Bilirubin,Urine Small mg/dL (Negative); Blood, Urine Large mg/dL (Negative); Glucose,Urine (UA) Negative (Negative); Ketones,Urine 40 mg/dL (Negative); Nitrite,Urine Negative (Negative); Protein,Urine >=300 mg/dL (Negative); Urine Appearance Slightly Cloudy (Clear); Urine Color Yellow (Yellow); Urine Specific Gravity 1.025 (1.001-1.035); Urine Urobilinogen 0.2 eU/dL (<2.0); Urine pH 6.5 (4.5-8.0)
[2022-02-05 17:51] LABS: Bacteria,Urine Few /HPF (Few); Mucus,Urine Occasional /LPF (Occasional); RBC,Urine 708 /HPF (0-4); Squamous Epithelial Cell,Urine Occasional /HPF (0-10)
[2022-02-05 18:07] LABS: Albumin 2.7 G/DL (3.4-5.0); Bilirubin,Total 0.9 MG/DL (0.20-1.00); Calcium 8.4 MG/DL (8.5-10.1); Osmolality,Calculated 289.1 MOS/KG (273-304); Total Protein 6.5 G/DL (6.4-8.2)
[2022-02-05] MEDS ORDERED: PIPERACILLIN/TAZOBACTAM 3,375 MG in SODIUM CHLORIDE 0.9% 100 ML IV STA (18:25)
[2022-02-05] MEDS ORDERED: VANCOMYCIN INJ 1,000 MG in SODIUM CHLORIDE 0.9% 250 ML IV STA (18:25)
[2022-02-05] MEDS: DILTIAZEM INJ 100 MG in SODIUM CHLORIDE 0.9% 100 ML IV SCH (18:39)
[2022-02-05] MEDS ORDERED: hydrALAZINE 20 MG/1 ML VIAL IV PRN (19:40)
[2022-02-05] MEDS ORDERED: GLUCAGON 1 MG VIAL IM PRN (19:40)
[2022-02-05] MEDS ORDERED: DEXTROSE 10% 250 ML BAG IV PRN (19:47)
[2022-02-05] MEDS ORDERED: ALBUTEROL/IPRATROPIUM 3 ML NEB RESP TX PRN (19:47)
[2022-02-05 20:39] LABS: Risk Ratio 1.96
[2022-02-06] MEDS: TOPIRAMATE 25 MG TABLET PO SCH ×3 (00:48→21:48)
[2022-02-06] MEDS: GABAPENTIN 300 MG CAPSULE PO SCH ×4 (00:48→21:45)
[2022-02-06] MEDS: traZODone 50 MG TABLET PO SCH ×2 (00:48→21:45)
[2022-02-06] MEDS: DEXTROSE 5% NACL 0.9% 1,000 ML IV SCH ×3 (00:59→21:50)
[2022-02-06] MEDS: PIPERACILLIN/TAZOBACTAM 3,375 MG in SODIUM CHLORIDE 0.9% 100 ML IV SCH ×3 (03:49→17:18)
[2022-02-06] MEDS: HYDROmorphone 1 MG/1 ML SYRINGE IV PRN (05:14)
[2022-02-06 05:46] LABS: Basophils % 0.2 % (0.0-0.8); Hematocrit 32.9 VOL% (35.7-47.0); Hemoglobin 9.9 GM/DL (12.0-16.0); Immature Granulocytes % 0.7 %; Immature Granulocytes Absolute 0.06 #; Lymphocytes # 0.8 10*3/uL (1.4-4.0); Lymphocytes % 9.2 % (21.3-54.2); Mean Corpuscular HGB Conc 30.1 GM/DL (32-36); Mean Corpuscular Volume 86.8 FL (87-102); Mean Platelet Volume 13.1 FL (9.6-12.0); Monocytes # 1.4 10*3/uL (0.11-0.8); Monocytes % 16.2 % (1.7-12.7); Neutrophils % 73.7 % (38.7-73.9); Platelet Count 127 T/CUMM (130-400); Red Blood Count 3.79 MC/CUMM (3.8-5.5); Red Cell Distribution Width 14.1 % (9.3-17.3); White Blood Count 8.5 T/CUMM (4-12)
[2022-02-06 06:02] LABS: Albumin 2.3 G/DL (3.4-5.0); Bilirubin,Total 0.6 MG/DL (0.20-1.00); Calcium 8.4 MG/DL (8.5-10.1); Osmolality,Calculated 291.8 MOS/KG (273-304); Potassium 2.7 MMOL/L (3.5-5.1); Total Protein 5.6 G/DL (6.4-8.2)
[2022-02-06] MEDS: LEVOTHYROXINE 100 MCG TABLET PO SCH (06:04)
[2022-02-06 06:10] LABS: Band Neutrophils 1 % (0-10); Hypochromia Slight; Lymphocytes 7 % (20-55); Microcytosis Slight; Platelet Estimate Normal; Total Cells Counted 100
[2022-02-06] MEDS ORDERED: POTASSIUM CHLORIDE 20 MEQ TABLET PO PRN (07:44)
[2022-02-06] MEDS: DILTIAZEM INJ 100 MG in SODIUM CHLORIDE 0.9% 100 ML IV SCH (07:50)
[2022-02-06] MEDS ORDERED: VANCOMYCIN INJ 1,000 MG in SODIUM CHLORIDE 0.9% 250 ML IV SCH (08:00)
[2022-02-06] MEDS ORDERED: POTASSIUM CHLORIDE 20 MEQ TABLET PO ONE ×2 (08:21)
[2022-02-06] MEDS ORDERED: NITROGLYCERIN SL 0.4 MG TABLET SL PRN (09:17)
[2022-02-06] MEDS: PANTOPRAZOLE 40 MG VIAL IV SCH (09:51)
[2022-02-06] MEDS: LEFLUNOMIDE 10 MG TABLET PO SCH (09:52)
[2022-02-06] MEDS: MELOXICAM 7.5 MG TABLET PO SCH (09:52)
[2022-02-06] MEDS: ROSUVASTATIN 10 MG TABLET PO SCH (09:52)
[2022-02-06] MEDS: TOFACITINIB 11 MG PO SCH (09:59)
[2022-02-06] MEDS: DILTIAZEM CD 120 MG CAPSULE PO SCH (10:13)
[2022-02-06] MEDS: ASPIRIN EC 81 MG TABLET PO SCH (10:13)
[2022-02-06] MEDS: carvediloL 6.25 MG TABLET PO SCH ×2 (10:13→17:18)
[2022-02-06] MEDS: ACETAMINOPHEN 325 MG TABLET PO PRN (11:42)
[2022-02-06] MEDS: ASCORBIC ACID 500 MG TABLET PO SCH (21:45)
[2022-02-07] MEDS: ACETAMINOPHEN 325 MG TABLET PO PRN (01:11)
[2022-02-07 05:27] LABS: Basophils % 0.4 % (0.0-0.8); Eosinophils # 0.1 10*3/uL (0.0-0.87); Eosinophils % 0.8 % (0.00-10.9); Hematocrit 33.5 VOL% (35.7-47.0); Hemoglobin 9.9 GM/DL (12.0-16.0); Immature Granulocytes % 0.6 %; Immature Granulocytes Absolute 0.04 #; Lymphocytes % 13.9 % (21.3-54.2); Mean Corpuscular HGB Conc 29.6 GM/DL (32-36); Mean Corpuscular Volume 88.4 FL (87-102); Mean Platelet Volume 14.1 FL (9.6-12.0); Monocytes # 1.4 10*3/uL (0.11-0.8); Monocytes % 19.5 % (1.7-12.7); Neutrophils % 64.8 % (38.7-73.9); Platelet Count 135 T/CUMM (130-400); Red Blood Count 3.79 MC/CUMM (3.8-5.5); Red Cell Distribution Width 14.5 % (9.3-17.3); White Blood Count 7.2 T/CUMM (4-12)
[2022-02-07 05:58] LABS: Band Neutrophils 3 % (0-10); Eosinophils 1 % (0-10); Hypochromia Slight; Lymphocytes 11 % (20-55); Microcytosis Slight; Platelet Estimate Adequate; Total Cells Counted 100
[2022-02-07 06:01] LABS: Calcium 8.1 MG/DL (8.5-10.1); Osmolality,Calculated 300.1 MOS/KG (273-304); Potassium 3.1 MMOL/L (3.5-5.1)
[2022-02-07] MEDS: LEVOTHYROXINE 100 MCG TABLET PO SCH (06:01)
[2022-02-07] MEDS ORDERED: POTASSIUM CHLORIDE 20 MEQ TABLET PO ONE (07:52)
[2022-02-07] MEDS: TOPIRAMATE 25 MG TABLET PO SCH ×2 (09:08→21:29)
[2022-02-07] MEDS: DILTIAZEM CD 120 MG CAPSULE PO SCH (09:09)
[2022-02-07] MEDS: carvediloL 6.25 MG TABLET PO SCH (09:09)
[2022-02-07] MEDS: LEFLUNOMIDE 10 MG TABLET PO SCH (09:09)
[2022-02-07] MEDS: GABAPENTIN 300 MG CAPSULE PO SCH ×3 (09:10→21:29)
[2022-02-07] MEDS: ROSUVASTATIN 10 MG TABLET PO SCH (09:10)
[2022-02-07] MEDS: MELOXICAM 7.5 MG TABLET PO SCH (09:10)
[2022-02-07] MEDS: ASPIRIN EC 81 MG TABLET PO SCH (09:11)
[2022-02-07] MEDS: TOFACITINIB 11 MG PO SCH (09:11)
[2022-02-07] MEDS: ASCORBIC ACID 500 MG TABLET PO SCH ×2 (09:11→21:29)
[2022-02-07] MEDS: PANTOPRAZOLE 40 MG VIAL IV SCH (09:15)
[2022-02-07] MEDS: PIPERACILLIN/TAZOBACTAM 3,375 MG in SODIUM CHLORIDE 0.9% 100 ML IV SCH ×2 (09:26)
[2022-02-07] MEDS: DICYCLOMINE 20 MG TABLET PO SCH ×2 (15:18→21:30)
[2022-02-07] MEDS: BACILLUS COAGULANS CAPLET PO SCH (15:18)
[2022-02-07] MEDS ORDERED: LACTATED RINGERS 1,000 ML IV SCH (16:00)
[2022-02-07] MEDS: CEFEPIME 1,000 MG in SODIUM CHLORIDE 0.9% 100 ML IV SCH ×2 (16:58→21:31)
[2022-02-07] MEDS ORDERED: SODIUM CHLORIDE 0.9% 1,000 ML IV ONE (17:01)
[2022-02-07] MEDS: DEXTROSE 5% NACL 0.9% 1,000 ML IV SCH ×2 (17:47→17:50)
[2022-02-07] MEDS: SODIUM CHLORIDE 0.9% 1,000 ML IV SCH (18:42)
[2022-02-07] MEDS: traZODone 50 MG TABLET PO SCH (21:29)
[2022-02-08] MEDS: SODIUM CHLORIDE 0.9% 1,000 ML IV SCH (02:55)
[2022-02-08] MEDS: CEFEPIME 1,000 MG in SODIUM CHLORIDE 0.9% 100 ML IV SCH ×5 (03:39→21:19)
[2022-02-08] MEDS: LEVOTHYROXINE 100 MCG TABLET PO SCH (05:41)
[2022-02-08 06:51] LABS: Basophils % 0.3 % (0.0-0.8); Eosinophils # 0.2 10*3/uL (0.0-0.87); Immature Granulocytes % 0.6 %; Immature Granulocytes Absolute 0.04 #; Lymphocytes # 1.3 10*3/uL (1.4-4.0); Lymphocytes % 19.3 % (21.3-54.2); Mean Corpuscular HGB Conc 29.5 GM/DL (32-36); Mean Corpuscular Volume 87.9 FL (87-102); Mean Platelet Volume 13.5 FL (9.6-12.0); Monocytes # 1.2 10*3/uL (0.11-0.8); Monocytes % 18.7 % (1.7-12.7); Neutrophils % 58.1 % (38.7-73.9); Platelet Count 148 T/CUMM (130-400); Red Blood Count 4.21 MC/CUMM (3.8-5.5); Red Cell Distribution Width 14.7 % (9.3-17.3); White Blood Count 6.6 T/CUMM (4-12)
[2022-02-08 06:54] LABS: Hemoglobin 10.9 GM/DL (12.0-16.0)
[2022-02-08 06:59] LABS: Calcium 8.7 MG/DL (8.5-10.1); Osmolality,Calculated 299.1 MOS/KG (273-304); Potassium 3.9 MMOL/L (3.5-5.1)
[2022-02-08 07:07] LABS: Band Neutrophils 1 % (0-10); Eosinophils 3 % (0-10); Hypochromia Slight; Lymphocytes 15 % (20-55); Microcytosis Slight; Ovalocytes Slight; Platelet Estimate Adequate; Total Cells Counted 100
[2022-02-08] MEDS: PANTOPRAZOLE 40 MG VIAL IV SCH (11:17)
[2022-02-08] MEDS: ASPIRIN EC 81 MG TABLET PO SCH (11:22)
[2022-02-08] MEDS: LEFLUNOMIDE 10 MG TABLET PO SCH (11:22)
[2022-02-08] MEDS: BACILLUS COAGULANS CAPLET PO SCH (11:22)
[2022-02-08] MEDS: MELOXICAM 7.5 MG TABLET PO SCH (11:23)
[2022-02-08] MEDS: GABAPENTIN 300 MG CAPSULE PO SCH ×3 (11:23→21:19)
[2022-02-08] MEDS: DICYCLOMINE 20 MG TABLET PO SCH ×3 (11:23→21:19)
[2022-02-08] MEDS: ROSUVASTATIN 10 MG TABLET PO SCH (11:23)
[2022-02-08] MEDS: DILTIAZEM CD 120 MG CAPSULE PO SCH (11:23)
[2022-02-08] MEDS: TOPIRAMATE 25 MG TABLET PO SCH ×2 (11:24→21:23)
[2022-02-08] MEDS: TOFACITINIB 11 MG PO SCH (11:24)
[2022-02-08] MEDS: ASCORBIC ACID 500 MG TABLET PO SCH ×2 (11:24→21:19)
[2022-02-08 11:42] LABS: % Iron Saturation 11.8 % (18-50)
[2022-02-08] MEDS: traZODone 50 MG TABLET PO SCH (21:19)
[2022-02-08] MEDS: carvediloL 6.25 MG TABLET PO SCH (21:19)
[2022-02-09] MEDS: CEFEPIME 1,000 MG in SODIUM CHLORIDE 0.9% 100 ML IV SCH ×4 (02:28→21:38)
[2022-02-09] MEDS: SODIUM CHLORIDE 0.9% 1,000 ML IV SCH ×5 (02:28→16:47)
[2022-02-09 05:25] LABS: Basophils % 0.6 % (0.0-0.8); Eosinophils # 0.2 10*3/uL (0.0-0.87); Eosinophils % 4.7 % (0.00-10.9); Hematocrit 30.5 VOL% (35.7-47.0); Immature Granulocytes % 0.4 %; Immature Granulocytes Absolute 0.02 #; Lymphocytes # 1.1 10*3/uL (1.4-4.0); Lymphocytes % 22.4 % (21.3-54.2); Mean Corpuscular HGB Conc 29.5 GM/DL (32-36); Mean Corpuscular Volume 87.6 FL (87-102); Mean Platelet Volume 13.1 FL (9.6-12.0); Monocytes # 0.7 10*3/uL (0.11-0.8); Monocytes % 14.2 % (1.7-12.7); Neutrophils % 57.7 % (38.7-73.9); Platelet Count 154 T/CUMM (130-400); Red Blood Count 3.48 MC/CUMM (3.8-5.5); Red Cell Distribution Width 14.7 % (9.3-17.3); White Blood Count 5.1 T/CUMM (4-12)
[2022-02-09] MEDS: LEVOTHYROXINE 100 MCG TABLET PO SCH (05:27)
[2022-02-09 06:03] LABS: Calcium 8.3 MG/DL (8.5-10.1); Osmolality,Calculated 297.1 MOS/KG (273-304); Potassium 3.8 MMOL/L (3.5-5.1)
[2022-02-09] MEDS: MELOXICAM 7.5 MG TABLET PO SCH (08:33)
[2022-02-09] MEDS: DICYCLOMINE 20 MG TABLET PO SCH ×3 (08:33→21:38)
[2022-02-09] MEDS: GABAPENTIN 300 MG CAPSULE PO SCH ×3 (08:33→21:37)
[2022-02-09] MEDS: ASPIRIN EC 81 MG TABLET PO SCH (08:33)
[2022-02-09] MEDS: LEFLUNOMIDE 10 MG TABLET PO SCH (08:33)
[2022-02-09] MEDS: BACILLUS COAGULANS CAPLET PO SCH (08:34)
[2022-02-09] MEDS: TOPIRAMATE 25 MG TABLET PO SCH ×2 (08:34→21:37)
[2022-02-09] MEDS: ASCORBIC ACID 500 MG TABLET PO SCH ×2 (08:34→21:37)
[2022-02-09] MEDS: PANTOPRAZOLE 40 MG VIAL IV SCH (08:34)
[2022-02-09] MEDS: carvediloL 6.25 MG TABLET PO SCH ×2 (08:34→21:38)
[2022-02-09] MEDS: ROSUVASTATIN 10 MG TABLET PO SCH (08:34)
[2022-02-09] MEDS: TOFACITINIB 11 MG PO SCH (08:35)
[2022-02-09] MEDS: FERROUS SULFATE 325 MG TABLET PO SCH ×2 (09:25→21:37)
[2022-02-09] MEDS ORDERED: POLYETHYLENE GLYCOL POWDER 17 GM PACK PO SCH (13:30)
[2022-02-09] MEDS: ALBUTEROL/IPRATROPIUM 3 ML NEB RESP TX SCH (19:30)
[2022-02-09] MEDS: traZODone 50 MG TABLET PO SCH (21:38)
[2022-02-09] MEDS ORDERED: SENNA 8.6 MG TABLET PO ONE (21:40)
[2022-02-09] MEDS: DOCUSATE SODIUM 100 MG CAPSULE PO SCH (22:10)
[2022-02-10] MEDS: SODIUM CHLORIDE 0.9% 1,000 ML IV SCH ×2 (00:14→21:37)
[2022-02-10] MEDS: ALBUTEROL/IPRATROPIUM 3 ML NEB RESP TX SCH ×4 (00:48→19:20)
[2022-02-10] MEDS: CEFEPIME 1,000 MG in SODIUM CHLORIDE 0.9% 100 ML IV SCH ×4 (03:01→21:15)
[2022-02-10] MEDS: LEVOTHYROXINE 100 MCG TABLET PO SCH (06:00)
[2022-02-10 06:27] LABS: Calcium 8.1 MG/DL (8.5-10.1); Osmolality,Calculated 291.4 MOS/KG (273-304); Potassium 3.9 MMOL/L (3.5-5.1)
[2022-02-10 06:30] LABS: Basophils % 0.5 % (0.0-0.8); Eosinophils # 0.3 10*3/uL (0.0-0.87); Eosinophils % 4.8 % (0.00-10.9); Hematocrit 34.2 VOL% (35.7-47.0); Hemoglobin 10.1 GM/DL (12.0-16.0); Immature Granulocytes % 0.7 %; Immature Granulocytes Absolute 0.04 #; Lymphocytes # 1.3 10*3/uL (1.4-4.0); Lymphocytes % 23.4 % (21.3-54.2); Mean Corpuscular HGB Conc 29.5 GM/DL (32-36); Mean Corpuscular Volume 87.7 FL (87-102); Mean Platelet Volume 13.4 FL (9.6-12.0); Monocytes # 0.8 10*3/uL (0.11-0.8); Monocytes % 14.3 % (1.7-12.7); Neutrophils % 56.3 % (38.7-73.9); Platelet Count 193 T/CUMM (130-400); Red Cell Distribution Width 14.7 % (9.3-17.3); White Blood Count 5.6 T/CUMM (4-12)
[2022-02-10 06:52] LABS: Target Cells Slight
[2022-02-10 06:53] LABS: Platelet Estimate Normal
[2022-02-10] MEDS: carvediloL 6.25 MG TABLET PO SCH ×2 (09:52→21:15)
[2022-02-10] MEDS: BACILLUS COAGULANS CAPLET PO SCH (09:52)
[2022-02-10] MEDS: LEFLUNOMIDE 10 MG TABLET PO SCH (09:52)
[2022-02-10] MEDS: HYDROmorphone 1 MG/1 ML SYRINGE IV PRN (09:52)
[2022-02-10] MEDS: ASPIRIN EC 81 MG TABLET PO SCH (09:52)
[2022-02-10] MEDS: MELOXICAM 7.5 MG TABLET PO SCH (09:52)
[2022-02-10] MEDS: ROSUVASTATIN 10 MG TABLET PO SCH (09:52)
[2022-02-10] MEDS: DOCUSATE SODIUM 100 MG CAPSULE PO SCH ×2 (09:52→21:15)
[2022-02-10] MEDS: DICYCLOMINE 20 MG TABLET PO SCH ×3 (09:52→21:15)
[2022-02-10] MEDS: ASCORBIC ACID 500 MG TABLET PO SCH ×2 (09:52→21:15)
[2022-02-10] MEDS: TOPIRAMATE 25 MG TABLET PO SCH ×2 (09:52→21:15)
[2022-02-10] MEDS: GABAPENTIN 300 MG CAPSULE PO SCH ×3 (09:52→21:15)
[2022-02-10] MEDS: PANTOPRAZOLE 40 MG VIAL IV SCH (09:52)
[2022-02-10] MEDS: FERROUS SULFATE 325 MG TABLET PO SCH (10:56)
[2022-02-10] MEDS: POLYETHYLENE GLYCOL POWDER 17 GM PACK PO SCH ×2 (10:57→21:16)
[2022-02-10] MEDS: TOFACITINIB 11 MG PO SCH (10:58)
[2022-02-10] MEDS: traZODone 50 MG TABLET PO SCH (21:15)
[2022-02-11] MEDS: ALBUTEROL/IPRATROPIUM 3 ML NEB RESP TX SCH ×4 (01:24→20:15)
[2022-02-11] MEDS: CEFEPIME 1,000 MG in SODIUM CHLORIDE 0.9% 100 ML IV SCH ×3 (03:30→15:53)
[2022-02-11] MEDS: ACETAMINOPHEN 325 MG TABLET PO PRN (04:29)
[2022-02-11 05:36] LABS: Basophils % 0.5 % (0.0-0.8); Eosinophils # 0.3 10*3/uL (0.0-0.87); Eosinophils % 3.4 % (0.00-10.9); Hematocrit 31.7 VOL% (35.7-47.0); Hemoglobin 9.4 GM/DL (12.0-16.0); Immature Granulocytes % 0.5 %; Immature Granulocytes Absolute 0.04 #; Lymphocytes # 1.1 10*3/uL (1.4-4.0); Lymphocytes % 14.2 % (21.3-54.2); Mean Corpuscular HGB Conc 29.7 GM/DL (32-36); Mean Corpuscular Volume 86.6 FL (87-102); Mean Platelet Volume 12.5 FL (9.6-12.0); Monocytes % 13.3 % (1.7-12.7); Neutrophils % 68.1 % (38.7-73.9); Platelet Count 237 T/CUMM (130-400); Red Blood Count 3.66 MC/CUMM (3.8-5.5); Red Cell Distribution Width 14.2 % (9.3-17.3); White Blood Count 7.7 T/CUMM (4-12)
[2022-02-11] MEDS: LEVOTHYROXINE 100 MCG TABLET PO SCH (06:03)
[2022-02-11 06:06] LABS: Calcium 8.3 MG/DL (8.5-10.1); Potassium 3.4 MMOL/L (3.5-5.1)
[2022-02-11] MEDS: BACILLUS COAGULANS CAPLET PO SCH (10:42)
[2022-02-11] MEDS: MELOXICAM 7.5 MG TABLET PO SCH (10:43)
[2022-02-11] MEDS: LEFLUNOMIDE 10 MG TABLET PO SCH (10:43)
[2022-02-11] MEDS: ROSUVASTATIN 10 MG TABLET PO SCH (10:43)
[2022-02-11] MEDS: TOPIRAMATE 25 MG TABLET PO SCH ×2 (10:43→21:10)
[2022-02-11] MEDS: ASCORBIC ACID 500 MG TABLET PO SCH ×2 (10:44→21:10)
[2022-02-11] MEDS: FERROUS SULFATE 325 MG TABLET PO SCH (10:44)
[2022-02-11] MEDS: DICYCLOMINE 20 MG TABLET PO SCH ×3 (10:44→21:10)
[2022-02-11] MEDS: GABAPENTIN 300 MG CAPSULE PO SCH ×3 (10:44→21:10)
[2022-02-11] MEDS: carvediloL 6.25 MG TABLET PO SCH ×2 (10:44→21:10)
[2022-02-11] MEDS: DOCUSATE SODIUM 100 MG CAPSULE PO SCH ×2 (10:44→21:10)
[2022-02-11] MEDS: HYDROmorphone 1 MG/1 ML SYRINGE IV PRN ×2 (10:57→16:26)
[2022-02-11] MEDS: PANTOPRAZOLE 40 MG VIAL IV SCH (10:57)
[2022-02-11] MEDS: POLYETHYLENE GLYCOL POWDER 17 GM PACK PO SCH ×2 (11:53→21:10)
[2022-02-11] MEDS: TOFACITINIB 11 MG PO SCH (11:53)
[2022-02-11] MEDS: ASPIRIN EC 81 MG TABLET PO SCH (11:53)
[2022-02-11] MEDS: traZODone 50 MG TABLET PO SCH (21:10)
[2022-02-12] MEDS: CEFEPIME 1,000 MG in SODIUM CHLORIDE 0.9% 100 ML IV SCH ×4 (01:56→21:08)
[2022-02-12] MEDS: SODIUM CHLORIDE 0.9% 1,000 ML IV SCH ×2 (01:57→22:50)
[2022-02-12] MEDS: ALBUTEROL/IPRATROPIUM 3 ML NEB RESP TX SCH ×4 (02:35→19:46)
[2022-02-12 05:10] LABS: Basophils % 0.4 % (0.0-0.8); Eosinophils # 0.3 10*3/uL (0.0-0.87); Eosinophils % 4.5 % (0.00-10.9); Hemoglobin 9.6 GM/DL (12.0-16.0); Immature Granulocytes % 1.1 %; Immature Granulocytes Absolute 0.08 #; Lymphocytes # 1.3 10*3/uL (1.4-4.0); Lymphocytes % 18.7 % (21.3-54.2); Mean Corpuscular Volume 85.8 FL (87-102); Mean Platelet Volume 12.3 FL (9.6-12.0); Monocytes # 0.9 10*3/uL (0.11-0.8); Monocytes % 12.1 % (1.7-12.7); Neutrophils % 63.2 % (38.7-73.9); Platelet Count 280 T/CUMM (130-400); Red Blood Count 3.73 MC/CUMM (3.8-5.5); Red Cell Distribution Width 14.1 % (9.3-17.3); White Blood Count 7.1 T/CUMM (4-12)
[2022-02-12] MEDS: LEVOTHYROXINE 100 MCG TABLET PO SCH (05:26)
[2022-02-12 06:27] LABS: Calcium 8.3 MG/DL (8.5-10.1); Potassium 3.6 MMOL/L (3.5-5.1)
[2022-02-12] MEDS: POLYETHYLENE GLYCOL POWDER 17 GM PACK PO SCH ×2 (09:18→21:10)
[2022-02-12] MEDS: ASPIRIN EC 81 MG TABLET PO SCH (09:19)
[2022-02-12] MEDS: FERROUS SULFATE 325 MG TABLET PO SCH (09:20)
[2022-02-12] MEDS: DOCUSATE SODIUM 100 MG CAPSULE PO SCH ×2 (09:20→21:09)
[2022-02-12] MEDS: ASCORBIC ACID 500 MG TABLET PO SCH ×2 (09:21→21:09)
[2022-02-12] MEDS: GABAPENTIN 300 MG CAPSULE PO SCH ×3 (09:21→21:09)
[2022-02-12] MEDS: BACILLUS COAGULANS CAPLET PO SCH (09:22)
[2022-02-12] MEDS: ROSUVASTATIN 10 MG TABLET PO SCH (09:22)
[2022-02-12] MEDS: MELOXICAM 7.5 MG TABLET PO SCH (09:22)
[2022-02-12] MEDS: DICYCLOMINE 20 MG TABLET PO SCH ×3 (09:23→21:09)
[2022-02-12] MEDS: TOFACITINIB 11 MG PO SCH (09:24)
[2022-02-12] MEDS: carvediloL 6.25 MG TABLET PO SCH ×2 (09:24→21:09)
[2022-02-12] MEDS: TOPIRAMATE 25 MG TABLET PO SCH ×2 (09:24→21:09)
[2022-02-12] MEDS: LEFLUNOMIDE 10 MG TABLET PO SCH (09:25)
[2022-02-12] MEDS: PANTOPRAZOLE 40 MG VIAL IV SCH (09:27)
[2022-02-12] MEDS: HYDROmorphone 1 MG/1 ML SYRINGE IV PRN ×2 (10:46→17:30)
[2022-02-12] MEDS: traZODone 50 MG TABLET PO SCH (21:09)
[2022-02-13] MEDS: ALBUTEROL/IPRATROPIUM 3 ML NEB RESP TX SCH ×4 (00:22→20:05)
[2022-02-13] MEDS: CEFEPIME 1,000 MG in SODIUM CHLORIDE 0.9% 100 ML IV SCH ×4 (02:15→20:59)
[2022-02-13] MEDS: LEVOTHYROXINE 100 MCG TABLET PO SCH (05:48)
[2022-02-13] MEDS: PANTOPRAZOLE 40 MG VIAL IV SCH (08:35)
[2022-02-13] MEDS: HYDROmorphone 1 MG/1 ML SYRINGE IV PRN ×5 (08:37→18:07)
[2022-02-13] MEDS: LEFLUNOMIDE 10 MG TABLET PO SCH (10:34)
[2022-02-13] MEDS: ASPIRIN EC 81 MG TABLET PO SCH (10:34)
[2022-02-13] MEDS: BACILLUS COAGULANS CAPLET PO SCH (10:34)
[2022-02-13] MEDS: ROSUVASTATIN 10 MG TABLET PO SCH (10:35)
[2022-02-13] MEDS: DICYCLOMINE 20 MG TABLET PO SCH ×3 (10:35→21:00)
[2022-02-13] MEDS: DOCUSATE SODIUM 100 MG CAPSULE PO SCH ×2 (10:35→21:00)
[2022-02-13] MEDS: POLYETHYLENE GLYCOL POWDER 17 GM PACK PO SCH ×2 (10:36→20:59)
[2022-02-13] MEDS: FERROUS SULFATE 325 MG TABLET PO SCH (10:36)
[2022-02-13] MEDS: TOPIRAMATE 25 MG TABLET PO SCH ×2 (10:37→21:00)
[2022-02-13] MEDS: TOFACITINIB 11 MG PO SCH (10:37)
[2022-02-13] MEDS: ASCORBIC ACID 500 MG TABLET PO SCH ×2 (10:37→21:00)
[2022-02-13] MEDS: MELOXICAM 7.5 MG TABLET PO SCH (10:38)
[2022-02-13] MEDS: GABAPENTIN 300 MG CAPSULE PO SCH ×3 (10:38→21:00)
[2022-02-13] MEDS: carvediloL 6.25 MG TABLET PO SCH ×2 (12:04→21:00)
[2022-02-13] MEDS ORDERED: LACTATED RINGERS 1,000 ML IV SCH (13:30)
[2022-02-13] MEDS ORDERED: fentaNYL 100 MCG/2 ML VIAL ONE (14:30)
[2022-02-13] MEDS ORDERED: MIDAZOLAM 2 MG/2 ML VIAL ONE (14:30)
[2022-02-13] MEDS ORDERED: ROCURONIUM 50 MG/5 ML VIAL IV ONE (14:43)
[2022-02-13] MEDS ORDERED: propofoL 200 MG/20 ML VIAL IV ONE (14:43)
[2022-02-13] MEDS ORDERED: LIDOCAINE 2% 5 ML VIAL ONE (14:43)
[2022-02-13] MEDS ORDERED: SEVOFLURANE 1 UNIT/15 MINUTE INH ONE ×10 (14:43→16:37)
[2022-02-13] MEDS ORDERED: ROPIVACAINE 0.5% 30 ML VIAL ONE (14:54)
[2022-02-13] MEDS ORDERED: ONDANSETRON 4 MG/2 ML VIAL ONE (15:42)
[2022-02-13] MEDS ORDERED: ACETAMINOPHEN INJ 1,000 MG/100 ML VIAL IV ONE (15:43)
[2022-02-13 16:19] LABS: Hematocrit 34.1 VOL% (35.7-47.0); Hemoglobin 10.2 GM/DL (12.0-16.0)
[2022-02-13] MEDS ORDERED: PHENYLEPHRINE 1 MG/10 ML SYRINGE IV ONE (16:46)
[2022-02-13] MEDS ORDERED: GLYCOPYRROLATE 0.4 MG/2 ML VIAL ONE (16:47)
[2022-02-13] MEDS ORDERED: NEOSTIGMINE 10 MG/10 ML VIAL ONE (16:48)
[2022-02-13] MEDS ORDERED: ONDANSETRON 4 MG/2 ML VIAL IV PRN (17:00)
[2022-02-13] MEDS ORDERED: ALBUTEROL/IPRATROPIUM 3 ML NEB RESP TX ONE (17:16)
[2022-02-13 17:37] LABS: RBC,Urine 340 /HPF (0-4); Squamous Epithelial Cell,Urine Occasional /HPF (0-10)
[2022-02-13 17:38] LABS: Bilirubin,Urine Negative (Negative); Blood, Urine Large mg/dL (Negative); Glucose,Urine (UA) Negative (Negative); Ketones,Urine Trace mg/dL (Negative); Nitrite,Urine Negative (Negative); Protein,Urine 30 mg/dL (Negative); Urine Appearance Clear (Clear); Urine Color Yellow (Yellow); Urine Urobilinogen 0.2 eU/dL (<2.0)
[2022-02-13] MEDS: SODIUM CHLORIDE 0.9% 1,000 ML IV SCH (19:13)
[2022-02-13] MEDS: traZODone 50 MG TABLET PO SCH (21:00)
[2022-02-13] MEDS: DEXT 5% NACL 0.9% KCL 20 MEQ 20 MEQ/1,000 ML BAG IV SCH (22:39)
[2022-02-14] MEDS: ALBUTEROL/IPRATROPIUM 3 ML NEB RESP TX SCH ×4 (00:20→19:26)
[2022-02-14] MEDS: CEFEPIME 1,000 MG in SODIUM CHLORIDE 0.9% 100 ML IV SCH ×4 (01:53→20:15)
[2022-02-14 05:07] LABS: Basophils # 0.1 10*3/uL (0.0-0.2); Basophils % 0.4 % (0.0-0.8); Eosinophils # 0.1 10*3/uL (0.0-0.87); Eosinophils % 0.3 % (0.00-10.9); Hematocrit 28.9 VOL% (35.7-47.0); Hemoglobin 8.6 GM/DL (12.0-16.0); Immature Granulocytes % 1.1 %; Immature Granulocytes Absolute 0.21 #; Lymphocytes # 0.5 10*3/uL (1.4-4.0); Lymphocytes % 2.6 % (21.3-54.2); Mean Corpuscular HGB Conc 29.8 GM/DL (32-36); Mean Corpuscular Volume 87.3 FL (87-102); Mean Platelet Volume 12.1 FL (9.6-12.0); Monocytes # 0.8 10*3/uL (0.11-0.8); Monocytes % 4.3 % (1.7-12.7); Neutrophils % 91.3 % (38.7-73.9); Platelet Count 297 T/CUMM (130-400); Red Blood Count 3.31 MC/CUMM (3.8-5.5); White Blood Count 19.6 T/CUMM (4-12)
[2022-02-14 05:33] LABS: Band Neutrophils 6 % (0-10); Hypochromia Slight; Lymphocytes 6 % (20-55); Microcytosis Slight; Platelet Estimate Adequate; Total Cells Counted 100
[2022-02-14 05:34] LABS: Calcium 7.8 MG/DL (8.5-10.1); Osmolality,Calculated 283.1 MOS/KG (273-304); Potassium 4.1 MMOL/L (3.5-5.1)
[2022-02-14] MEDS: LEVOTHYROXINE 100 MCG TABLET PO SCH (05:48)
[2022-02-14] MEDS: HYDROmorphone 1 MG/1 ML SYRINGE IV PRN ×3 (05:59→16:48)
[2022-02-14] MEDS ORDERED: MAGNESIUM SULF RIDER 4 GM/100 ML PREMIX IV PRN (07:01)
[2022-02-14] MEDS ORDERED: MAGNESIUM SULF RIDER 2 GM/50 ML PREMIX IV PRN (07:01)
[2022-02-14] MEDS ORDERED: SODIUM CHLORIDE 0.9% 1,000 ML IV PRN (08:08)
[2022-02-14] MEDS: TOPIRAMATE 25 MG TABLET PO SCH ×2 (08:30→20:16)
[2022-02-14] MEDS: DOCUSATE SODIUM 100 MG CAPSULE PO SCH ×2 (08:30→20:16)
[2022-02-14] MEDS: FERROUS SULFATE 325 MG TABLET PO SCH (08:30)
[2022-02-14] MEDS: BACILLUS COAGULANS CAPLET PO SCH (08:30)
[2022-02-14] MEDS: MELOXICAM 7.5 MG TABLET PO SCH (08:30)
[2022-02-14] MEDS: ASCORBIC ACID 500 MG TABLET PO SCH ×2 (08:30→20:16)
[2022-02-14] MEDS: ROSUVASTATIN 10 MG TABLET PO SCH (08:31)
[2022-02-14] MEDS: carvediloL 6.25 MG TABLET PO SCH ×2 (08:31→20:17)
[2022-02-14] MEDS: ASPIRIN EC 81 MG TABLET PO SCH (08:31)
[2022-02-14] MEDS: GABAPENTIN 300 MG CAPSULE PO SCH ×3 (08:31→20:16)
[2022-02-14] MEDS: LEFLUNOMIDE 10 MG TABLET PO SCH (08:31)
[2022-02-14] MEDS: PANTOPRAZOLE 40 MG VIAL IV SCH (08:32)
[2022-02-14] MEDS: POLYETHYLENE GLYCOL POWDER 17 GM PACK PO SCH ×2 (08:37→20:16)
[2022-02-14] MEDS: DICYCLOMINE 20 MG TABLET PO SCH ×3 (08:47→20:16)
[2022-02-14] MEDS: TOFACITINIB 11 MG PO SCH (09:52)
[2022-02-14] MEDS: traMADol 50 MG TABLET PO PRN ×2 (14:46→21:40)
[2022-02-14] MEDS: DESITIN 4OZ/NYSTATIN 15 GRAM MIXTURE PASTE TOP SCH ×2 (16:02→20:17)
[2022-02-14] MEDS: DEXT 5% NACL 0.9% KCL 20 MEQ 20 MEQ/1,000 ML BAG IV SCH (16:02)
[2022-02-14] MEDS: traZODone 50 MG TABLET PO SCH (20:16)
[2022-02-15] MEDS: DEXT 5% NACL 0.9% KCL 20 MEQ 20 MEQ/1,000 ML BAG IV SCH ×2 (00:05→15:27)
[2022-02-15] MEDS: ALBUTEROL/IPRATROPIUM 3 ML NEB RESP TX SCH ×4 (00:21→19:28)
[2022-02-15] MEDS: HYDROmorphone 1 MG/1 ML SYRINGE IV PRN ×3 (00:53→21:01)
[2022-02-15] MEDS: CEFEPIME 1,000 MG in SODIUM CHLORIDE 0.9% 100 ML IV SCH ×4 (03:31→20:50)
[2022-02-15] MEDS: LEVOTHYROXINE 100 MCG TABLET PO SCH (05:06)
[2022-02-15 06:38] LABS: Basophils # 0.1 10*3/uL (0.0-0.2); Basophils % 0.5 % (0.0-0.8); Eosinophils # 0.3 10*3/uL (0.0-0.87); Eosinophils % 2.4 % (0.00-10.9); Hematocrit 35.4 VOL% (35.7-47.0); Immature Granulocytes % 0.9 %; Immature Granulocytes Absolute 0.12 #; Lymphocytes # 1.6 10*3/uL (1.4-4.0); Lymphocytes % 11.5 % (21.3-54.2); Mean Corpuscular HGB Conc 29.7 GM/DL (32-36); Mean Corpuscular Volume 88.3 FL (87-102); Monocytes # 1.7 10*3/uL (0.11-0.8); Monocytes % 12.7 % (1.7-12.7); Platelet Count 261 T/CUMM (130-400); Red Cell Distribution Width 14.5 % (9.3-17.3)
[2022-02-15 06:43] LABS: Hemoglobin 10.5 GM/DL (12.0-16.0); Red Blood Count 4.01 MC/CUMM (3.8-5.5); White Blood Count 13.7 T/CUMM (4-12)
[2022-02-15 07:00] LABS: Calcium 7.9 MG/DL (8.5-10.1); Osmolality,Calculated 283.1 MOS/KG (273-304); Potassium 4.6 MMOL/L (3.5-5.1)
[2022-02-15] MEDS: ASCORBIC ACID 500 MG TABLET PO SCH ×2 (10:22→20:51)
[2022-02-15] MEDS: PANTOPRAZOLE 40 MG VIAL IV SCH (10:22)
[2022-02-15] MEDS: ROSUVASTATIN 10 MG TABLET PO SCH (10:22)
[2022-02-15] MEDS: TOPIRAMATE 25 MG TABLET PO SCH ×2 (10:23→20:51)
[2022-02-15] MEDS: ASPIRIN EC 81 MG TABLET PO SCH (10:23)
[2022-02-15] MEDS: predniSONE 5 MG TABLET PO PRN (10:23)
[2022-02-15] MEDS: DOCUSATE SODIUM 100 MG CAPSULE PO SCH ×2 (10:23→20:51)
[2022-02-15] MEDS: MELOXICAM 7.5 MG TABLET PO SCH (10:23)
[2022-02-15] MEDS: GABAPENTIN 300 MG CAPSULE PO SCH ×3 (10:24→20:51)
[2022-02-15] MEDS: FERROUS SULFATE 325 MG TABLET PO SCH (10:24)
[2022-02-15] MEDS: LEFLUNOMIDE 10 MG TABLET PO SCH (10:24)
[2022-02-15] MEDS: carvediloL 6.25 MG TABLET PO SCH ×2 (10:31→20:51)
[2022-02-15] MEDS: DESITIN 4OZ/NYSTATIN 15 GRAM MIXTURE PASTE TOP SCH ×2 (10:32→20:53)
[2022-02-15] MEDS: DICYCLOMINE 20 MG TABLET PO SCH ×3 (10:32→20:51)
[2022-02-15] MEDS: BACILLUS COAGULANS CAPLET PO SCH (10:32)
[2022-02-15] MEDS: POLYETHYLENE GLYCOL POWDER 17 GM PACK PO SCH ×2 (10:32→20:53)
[2022-02-15] MEDS: TOFACITINIB 11 MG PO SCH (10:33)
[2022-02-15] MEDS: ONDANSETRON 4 MG/2 ML VIAL IV PRN (12:04)
[2022-02-15] MEDS: traMADol 50 MG TABLET PO PRN (15:30)
[2022-02-15] MEDS: traZODone 50 MG TABLET PO SCH (20:51)
[2022-02-16] MEDS: ALBUTEROL/IPRATROPIUM 3 ML NEB RESP TX SCH ×4 (00:23→19:10)
[2022-02-16] MEDS: CEFEPIME 1,000 MG in SODIUM CHLORIDE 0.9% 100 ML IV SCH ×4 (02:08→22:36)
[2022-02-16] MEDS: HYDROmorphone 1 MG/1 ML SYRINGE IV PRN ×4 (02:22→22:38)
[2022-02-16] MEDS: DEXT 5% NACL 0.9% KCL 20 MEQ 20 MEQ/1,000 ML BAG IV SCH ×3 (03:20→22:53)
[2022-02-16] MEDS: LEVOTHYROXINE 100 MCG TABLET PO SCH (05:46)
[2022-02-16 06:15] LABS: Basophils % 0.5 % (0.0-0.8); Eosinophils # 0.2 10*3/uL (0.0-0.87); Eosinophils % 2.8 % (0.00-10.9); Hematocrit 31.6 VOL% (35.7-47.0); Hemoglobin 9.3 GM/DL (12.0-16.0); Immature Granulocytes % 0.7 %; Immature Granulocytes Absolute 0.06 #; Lymphocytes # 1.6 10*3/uL (1.4-4.0); Lymphocytes % 19.5 % (21.3-54.2); Mean Corpuscular HGB Conc 29.4 GM/DL (32-36); Mean Corpuscular Volume 89.5 FL (87-102); Mean Platelet Volume 12.1 FL (9.6-12.0); Monocytes # 1.1 10*3/uL (0.11-0.8); Neutrophils % 63.5 % (38.7-73.9); Platelet Count 274 T/CUMM (130-400); Red Blood Count 3.53 MC/CUMM (3.8-5.5); Red Cell Distribution Width 14.6 % (9.3-17.3); White Blood Count 8.2 T/CUMM (4-12)
[2022-02-16 06:44] LABS: Calcium 7.9 MG/DL (8.5-10.1); Potassium 4.3 MMOL/L (3.5-5.1)
[2022-02-16] MEDS: LEFLUNOMIDE 10 MG TABLET PO SCH (09:30)
[2022-02-16] MEDS: DOCUSATE SODIUM 100 MG CAPSULE PO SCH ×2 (09:30→20:56)
[2022-02-16] MEDS: GABAPENTIN 300 MG CAPSULE PO SCH ×3 (09:30→20:57)
[2022-02-16] MEDS: TOPIRAMATE 25 MG TABLET PO SCH ×2 (09:31→20:56)
[2022-02-16] MEDS: ASPIRIN EC 81 MG TABLET PO SCH (09:31)
[2022-02-16] MEDS: FERROUS SULFATE 325 MG TABLET PO SCH (09:31)
[2022-02-16] MEDS: predniSONE 5 MG TABLET PO PRN (09:31)
[2022-02-16] MEDS: ASCORBIC ACID 500 MG TABLET PO SCH ×2 (09:31→20:56)
[2022-02-16] MEDS: PANTOPRAZOLE 40 MG VIAL IV SCH (09:32)
[2022-02-16] MEDS: TOFACITINIB 11 MG PO SCH (09:35)
[2022-02-16] MEDS: carvediloL 6.25 MG TABLET PO SCH ×2 (09:55→20:56)
[2022-02-16] MEDS: DICYCLOMINE 20 MG TABLET PO SCH ×3 (09:55→20:57)
[2022-02-16] MEDS: BACILLUS COAGULANS CAPLET PO SCH (09:55)
[2022-02-16] MEDS: ROSUVASTATIN 10 MG TABLET PO SCH (10:03)
[2022-02-16] MEDS: DESITIN 4OZ/NYSTATIN 15 GRAM MIXTURE PASTE TOP SCH ×2 (10:07→20:58)
[2022-02-16] MEDS: MELOXICAM 7.5 MG TABLET PO SCH (10:07)
[2022-02-16] MEDS: POLYETHYLENE GLYCOL POWDER 17 GM PACK PO SCH ×2 (10:09→20:58)
[2022-02-16] MEDS: ONDANSETRON 4 MG/2 ML VIAL IV PRN (11:56)
[2022-02-16] MEDS: POTASSIUM CHLORIDE INJ 20 MEQ in DEXTROSE 5% NACL 0.9% 1,000 ML IV SCH (16:27)
[2022-02-16] MEDS: traZODone 50 MG TABLET PO SCH (20:57)
[2022-02-16] MEDS: traMADol 50 MG TABLET PO PRN (20:57)
[2022-02-17] MEDS: CEFEPIME 1,000 MG in SODIUM CHLORIDE 0.9% 100 ML IV SCH ×3 (02:29→13:24)
[2022-02-17 05:29] LABS: Basophils % 0.5 % (0.0-0.8); Eosinophils # 0.2 10*3/uL (0.0-0.87); Eosinophils % 2.7 % (0.00-10.9); Hematocrit 32.9 VOL% (35.7-47.0); Hemoglobin 9.7 GM/DL (12.0-16.0); Immature Granulocytes % 0.8 %; Immature Granulocytes Absolute 0.06 #; Lymphocytes # 1.7 10*3/uL (1.4-4.0); Lymphocytes % 23.1 % (21.3-54.2); Mean Corpuscular HGB Conc 29.5 GM/DL (32-36); Mean Corpuscular Volume 89.2 FL (87-102); Mean Platelet Volume 12.7 FL (9.6-12.0); Monocytes # 0.9 10*3/uL (0.11-0.8); Monocytes % 12.4 % (1.7-12.7); Neutrophils % 60.5 % (38.7-73.9); Platelet Count 289 T/CUMM (130-400); Red Blood Count 3.69 MC/CUMM (3.8-5.5); Red Cell Distribution Width 14.6 % (9.3-17.3); White Blood Count 7.3 T/CUMM (4-12)
[2022-02-17 05:46] LABS: Calcium 8.4 MG/DL (8.5-10.1); Osmolality,Calculated 288.6 MOS/KG (273-304); Potassium 4.4 MMOL/L (3.5-5.1)
[2022-02-17] MEDS: LEVOTHYROXINE 100 MCG TABLET PO SCH (06:00)
[2022-02-17] MEDS: HYDROmorphone 1 MG/1 ML SYRINGE IV PRN ×5 (06:10→20:57)
[2022-02-17] MEDS: ALBUTEROL/IPRATROPIUM 3 ML NEB RESP TX SCH ×3 (07:15→19:03)
[2022-02-17] MEDS: ASCORBIC ACID 500 MG TABLET PO SCH ×2 (09:52→20:54)
[2022-02-17] MEDS: MELOXICAM 7.5 MG TABLET PO SCH (09:52)
[2022-02-17] MEDS: ROSUVASTATIN 10 MG TABLET PO SCH (09:52)
[2022-02-17] MEDS: BACILLUS COAGULANS CAPLET PO SCH (09:52)
[2022-02-17] MEDS: LEFLUNOMIDE 10 MG TABLET PO SCH (09:52)
[2022-02-17] MEDS: GABAPENTIN 300 MG CAPSULE PO SCH ×3 (09:52→20:54)
[2022-02-17] MEDS: DICYCLOMINE 20 MG TABLET PO SCH ×3 (09:53→20:54)
[2022-02-17] MEDS: TOPIRAMATE 25 MG TABLET PO SCH ×2 (09:53→20:55)
[2022-02-17] MEDS: FERROUS SULFATE 325 MG TABLET PO SCH (09:53)
[2022-02-17] MEDS: DOCUSATE SODIUM 100 MG CAPSULE PO SCH ×2 (09:53→20:55)
[2022-02-17] MEDS: ASPIRIN EC 81 MG TABLET PO SCH (09:53)
[2022-02-17] MEDS: PANTOPRAZOLE 40 MG VIAL IV SCH (09:54)
[2022-02-17] MEDS: TOFACITINIB 11 MG PO SCH (09:54)
[2022-02-17] MEDS: DESITIN 4OZ/NYSTATIN 15 GRAM MIXTURE PASTE TOP SCH ×2 (09:55→21:08)
[2022-02-17] MEDS: carvediloL 6.25 MG TABLET PO SCH ×2 (10:08→20:55)
[2022-02-17] MEDS: POLYETHYLENE GLYCOL POWDER 17 GM PACK PO SCH ×2 (10:34→20:55)
[2022-02-17] MEDS: POTASSIUM CHLORIDE INJ 20 MEQ in DEXTROSE 5% NACL 0.9% 1,000 ML IV SCH (10:35)
[2022-02-17] MEDS: TOBRAMYCIN INJ 320 MG in SODIUM CHLORIDE 0.9% 100 ML IV SCH (16:51)
[2022-02-17] MEDS: AMOXICILLIN 875 MG TABLET PO SCH (20:54)
[2022-02-17] MEDS: traZODone 50 MG TABLET PO SCH (21:08)
[2022-02-18] MEDS: ALBUTEROL/IPRATROPIUM 3 ML NEB RESP TX SCH ×4 (00:45→13:45)
[2022-02-18] MEDS: HYDROmorphone 1 MG/1 ML SYRINGE IV PRN ×4 (04:00→18:07)
[2022-02-18] MEDS: LEVOTHYROXINE 100 MCG TABLET PO SCH (05:03)
[2022-02-18] MEDS: PANTOPRAZOLE 40 MG VIAL IV SCH (09:24)
[2022-02-18] MEDS: GABAPENTIN 300 MG CAPSULE PO SCH ×2 (09:25→14:55)
[2022-02-18] MEDS: TOPIRAMATE 25 MG TABLET PO SCH (09:25)
[2022-02-18] MEDS: ASPIRIN EC 81 MG TABLET PO SCH (09:25)
[2022-02-18] MEDS: carvediloL 6.25 MG TABLET PO SCH (09:25)
[2022-02-18] MEDS: DOCUSATE SODIUM 100 MG CAPSULE PO SCH (09:25)
[2022-02-18] MEDS: FERROUS SULFATE 325 MG TABLET PO SCH (09:25)
[2022-02-18] MEDS: ASCORBIC ACID 500 MG TABLET PO SCH (09:25)
[2022-02-18] MEDS: BACILLUS COAGULANS CAPLET PO SCH (09:25)
[2022-02-18] MEDS: MELOXICAM 7.5 MG TABLET PO SCH (09:25)
[2022-02-18] MEDS: LEFLUNOMIDE 10 MG TABLET PO SCH (09:25)
[2022-02-18] MEDS: DICYCLOMINE 20 MG TABLET PO SCH ×2 (09:25→14:55)
[2022-02-18] MEDS: TOFACITINIB 11 MG PO SCH (09:27)
[2022-02-18] MEDS: DESITIN 4OZ/NYSTATIN 15 GRAM MIXTURE PASTE TOP SCH (09:27)
[2022-02-18] MEDS: POLYETHYLENE GLYCOL POWDER 17 GM PACK PO SCH (09:27)
[2022-02-18] MEDS: AMOXICILLIN 875 MG TABLET PO SCH (09:29)
[2022-02-18] MEDS: ROSUVASTATIN 10 MG TABLET PO SCH (09:35)
[2022-02-18 15:21] LABS: Stone Source Right Ureter
[2022-02-18] MEDS: TOBRAMYCIN INJ 320 MG in SODIUM CHLORIDE 0.9% 100 ML IV SCH (18:05)
[2022-02-18 18:19] VITALS: BP 128/82
== END 2022-02-18 19:05 | disposition home health service (06) | DRG 660 ==
LOC: N.ED 16:17 → N.EDINP 19:37 → SUATTDRO 19:37 → N.TELEN 20:51
PROVIDERS: ADMIT Hospitalist; ATTEND Family Medicine

== ENCOUNTER 2022-08-08 06:25 | Observation (INO) ==
[2022-08-08] MEDS ORDERED: KETOROLAC 30 MG/1 ML VIAL IV STA (07:26)
[2022-08-08 07:35] LABS: Bilirubin,Total 0.6 MG/DL (0.20-1.00); Calcium 8.8 MG/DL (8.5-10.1); Potassium 3.4 MMOL/L (3.5-5.1); Total Protein 6.3 G/DL (6.4-8.2)
[2022-08-08 07:43] LABS: Basophils % 0.6 % (0.0-0.8); Eosinophils # 0.6 10*3/uL (0.0-0.87); Eosinophils % 7.7 % (0.00-10.9); Hematocrit 38.6 VOL% (35.7-47.0); Immature Granulocytes % 0.3 %; Immature Granulocytes Absolute 0.02 #; Lymphocytes # 2.4 10*3/uL (1.4-4.0); Mean Corpuscular HGB Conc 30.3 GM/DL (32-36); Mean Corpuscular Volume 83.5 FL (87-102); Mean Platelet Volume 12.7 FL (9.6-12.0); Monocytes # 0.7 10*3/uL (0.11-0.8); Monocytes % 9.6 % (1.7-12.7); Neutrophils % 47.8 % (38.7-73.9); Platelet Count 235 T/CUMM (130-400); Red Blood Count 4.62 MC/CUMM (3.8-5.5); Red Cell Distribution Width 13.8 % (9.3-17.3); White Blood Count 7.18 T/CUMM (4-12)
[2022-08-08 07:46] LABS: Hemoglobin 11.7 GM/DL (12.0-16.0)
[2022-08-08] MEDS ORDERED: DEXTROSE 50% 25 GM/50 ML VIAL IV STA (09:50)
[2022-08-08] MEDS ORDERED: DEXTROSE 50% 25 GM/50 ML SYRINGE IV STA (09:51)
[2022-08-08] MEDS ORDERED: FUROSEMIDE 40 MG/4 ML VIAL IV STA (12:10)
[2022-08-08] MEDS ORDERED: guaiFENesin/DM ER 600-30 MG TABLET PO PRN (12:11)
[2022-08-08] MEDS ORDERED: ONDANSETRON 4 MG/2 ML VIAL IV PRN (12:11)
[2022-08-08] MEDS ORDERED: ZALEPLON 5 MG CAPSULE PO PRN (12:11)
[2022-08-08] MEDS ORDERED: hydrALAZINE 20 MG/1 ML VIAL IV PRN (12:11)
[2022-08-08] MEDS ORDERED: ALBUTEROL/IPRATROPIUM 3 ML NEB RESP TX PRN (12:11)
[2022-08-08] MEDS ORDERED: diphenhydrAMINE CAP 25 MG CAPSULE PO PRN (12:11)
[2022-08-08] MEDS ORDERED: NITROGLYCERIN SL 0.4 MG TABLET SL ONE (12:17)
[2022-08-08] MEDS ORDERED: NITROGLYCERIN SL 0.4 MG TABLET SL PRN (12:21)
[2022-08-08] MEDS ORDERED: LEVOFLOXACIN INJ 750 MG/150 ML PREMIX IV SCH (14:00)
[2022-08-08] MEDS: GABAPENTIN 300 MG CAPSULE PO SCH ×2 (16:32→20:45)
[2022-08-08] MEDS: carvediloL 6.25 MG TABLET PO SCH (16:32)
[2022-08-08 17:42] LABS: Glucose,Urine (UA) Negative (Negative); Ketones,Urine Negative (Negative); Nitrite,Urine Negative (Negative); Protein,Urine Negative (Negative); Urine Appearance Clear (Clear); Urine Color Yellow (Yellow)
[2022-08-08 17:43] LABS: Bilirubin,Urine Negative (Negative); Blood, Urine Negative (Negative); Hyaline Casts,Urine 1 /LPF (0-3); Mucus,Urine Occasional /LPF (Occasional); RBC,Urine <1 /HPF (0-4); Squamous Epithelial Cell,Urine Occasional /HPF (0-10); Urine Urobilinogen 0.2 eU/dL (<2.0)
[2022-08-08 17:52] LABS: Barbiturates Screen,Urine Negative (Negative); Benzodiazepines Screen,Urine Negative (Negative); Cannabinoid Screen,Urine Negative (Negative); Opiate Screen,Urine Positive (Negative); Phencyclidine Screen,Urine Negative (Negative)
[2022-08-08] MEDS: ACETAMINOPHEN 325 MG TABLET PO PRN (19:06)
[2022-08-08] MEDS: oxyCODONE ER 10 MG TABLET PO SCH (20:44)
[2022-08-08] MEDS: HEPARIN 5,000 UNIT/1 ML VIAL SUBCUT SCH (20:44)
[2022-08-08] MEDS ORDERED: ROSUVASTATIN 10 MG TABLET PO SCH (21:00)
[2022-08-08] MEDS ORDERED: traZODone 50 MG TABLET PO SCH (21:00)
[2022-08-09 05:38] LABS: Basophils % 0.4 % (0.0-0.8); Immature Granulocytes % 0.4 %; Immature Granulocytes Absolute 0.02 #; Red Cell Distribution Width 13.6 % (9.3-17.3)
[2022-08-09] MEDS: ACETAMINOPHEN 325 MG TABLET PO PRN (05:55)
[2022-08-09 06:00] LABS: Calcium 8.8 MG/DL (8.5-10.1); Osmolality,Calculated 279.5 MOS/KG (273-304); Potassium 3.4 MMOL/L (3.5-5.1); Risk Ratio 1.9; VLDL Cholesterol 15.8 MG/DL
[2022-08-09 06:02] LABS: Eosinophils # 0.5 10*3/uL (0.0-0.87); Eosinophils % 8.6 % (0.00-10.9); Hemoglobin 11.3 GM/DL (12.0-16.0); Lymphocytes # 1.3 10*3/uL (1.4-4.0); Lymphocytes % 22.4 % (21.3-54.2); Mean Corpuscular Volume 88.2 FL (87-102); Mean Platelet Volume 12.9 FL (9.6-12.0); Monocytes # 0.8 10*3/uL (0.11-0.8); Monocytes % 13.1 % (1.7-12.7); Neutrophils % 55.1 % (38.7-73.9); Platelet Count 202 T/CUMM (130-400); Red Blood Count 4.42 MC/CUMM (3.8-5.5); White Blood Count 5.71 T/CUMM (4-12)
[2022-08-09] MEDS ORDERED: LEVOTHYROXINE 100 MCG TABLET PO SCH (06:30)
[2022-08-09 08:35] VITALS: BP 131/75
[2022-08-09] MEDS ORDERED: ASPIRIN EC 81 MG TABLET PO SCH (09:00)
[2022-08-09] MEDS ORDERED: FUROSEMIDE 20 MG TABLET PO SCH (09:00)
[2022-08-09] MEDS ORDERED: CLOPIDOGREL 75 MG TABLET PO SCH (09:00)
[2022-08-09] MEDS ORDERED: PANTOPRAZOLE 40 MG TABLET PO SCH (09:00)
[2022-08-09] MEDS ORDERED: predniSONE 5 MG TABLET PO SCH (09:00)
[2022-08-09] MEDS ORDERED: POTASSIUM CHLORIDE 20 MEQ TABLET PO SCH (09:00)
[2022-08-09] MEDS ORDERED: ESCITALOPRAM 10 MG TABLET PO SCH (09:00)
[2022-08-09] MEDS ORDERED: BISACODYL 5 MG TABLET PO SCH (09:00)
[2022-08-09] MEDS: oxyCODONE ER 10 MG TABLET PO SCH (09:35)
[2022-08-09] MEDS: carvediloL 6.25 MG TABLET PO SCH (09:36)
[2022-08-09] MEDS: GABAPENTIN 300 MG CAPSULE PO SCH (09:37)
[2022-08-09] MEDS: HEPARIN 5,000 UNIT/1 ML VIAL SUBCUT SCH (11:04)
== END 2022-08-09 12:00 | disposition home or self-care (01) ==
LOC: N.EDINP 06:25 → N.ED 06:25 → SUATTDRO 12:11 → N.2E 15:35
PROVIDERS: ADMIT Internal Medicine; ATTEND Internal Medicine